=== PATIENT | female | born 1990 | race Caucasian/White ===

== ENCOUNTER → 2017-01-05 | Outpatient (CLI) | payer OTHER ==
[~2017-01-05] MED LIST: LEXA10TA PO; [UNRECOGNIZED DRUG - CODE]
== END ==
LOC: HPND 14:06
PROVIDERS: ATTEND Obstetrics & Gynecology
DX: O44.01 Complete placenta previa NOS or without hemorrhage, first trimester (principal); Z3A.13 13 weeks gestation of pregnancy
CPT/HCPCS: 76801

== ENCOUNTER → 2017-02-17 | Outpatient (CLI) | payer OTHER | LOC: HPND 12:58 | PROVIDERS: ATTEND Obstetrics & Gynecology | DX: O43.892 Other placental disorders, second trimester (principal); O44.02 Complete placenta previa NOS or without hemorrhage, second trimester; Z3A.18 18 weeks gestation of pregnancy | CPT/HCPCS: 76811; 76817 ==

== ENCOUNTER 2017-03-03 14:52 | Emergency (ER) | payer OTHER ==
--- NOTE | 2017-03-03 15:40 | PD ---
HPI Chief Complaint Vaginal bleeding Date Seen: March 03, 2017 Time Seen: 15:33 Travel History International Travel<30 Days: No Contact w/Intl Traveler<30Days: No Known Affected Area: No History of Present Illness HPI 27-year-old who is at 20 weeks and 6 days with a known complete placenta previa comes in today with vaginal bleeding. Patient has had intermittent vaginal bleeding since 8 weeks and was diagnosed with a placenta previa at 12 weeks and was told that it was unlikely that this previa would resolve prior to delivery. Patient bled intermittently 3-4 days per week until 16 weeks and then a decreased. Patient's been at pelvic rest and decreased activity and she passed us a quarter size blood clot earlier this morning with no further bleeding. Denies abdominal pain or contractions Para: 2 : 3 History Past Medical History Medical History: Denies Significant Hx Obstetric History Obstetric History section 2 Past Surgical History Surgical History: No Previous Surgery Family History Family History: Negative Social History Alcohol Use: No Tobacco Use: No Substance Abuse: No Review of Systems Except as stated in HPI: all other systems reviewed are Neg Physical Exam Narrative GENERAL: Well-nourished, well-developed patient. SKIN: Warm and dry. HEAD: Normocephalic and atraumatic. EYES: No scleral icterus. No injection or drainage. ENT: No nasal drainage noted. Mucous membranes pink. Airway patent. NECK: Supple, trachea midline. No JVD. CARDIOVASCULAR: Regular rate and rhythm without murmurs, gallops, or rubs. RESPIRATORY: Breath sounds equal bilaterally. No accessory muscle use. BREASTS: Bilateral exam showed no masses , no retractions, no nipple discharge. ABDOMEN/GI: Abdomen soft, non-tender, bowel sounds present, no rebound, no guarding Gravid to [-] weeks size Fundal Height: [-21] GENITOURINARY: External Genitalia: intact and normal in appearance BUS glands: [-Normal] Cervix: [-Closed visually] some brown discharge noted intravaginally, no bleeding noted Dilatation: [-] Effacement: [-] Station: [-] Presentation: [-] Membranes: [intact or ruptured] Uterine Contractions: [-] Absent FHT's: Category: [-1] Baseline: [-130] Reactive: [-Moderate] Variability: Moderate Decels: Absent EXTREMITIES: No cyanosis or edema. BACK: Nontender without obvious deformity. No CVA tenderness. NEUROLOGICAL: Awake and alert. Motor and sensory grossly within normal limits. Five out of 5 muscle strength in all muscle groups. Normal speech. Data Data Vital Signs Reviewed: Yes MDM Plan 27-year-old who is at 20 weeks 6 days with complete placenta previa, minimal bleeding, no signs of active vaginal bleeding. Discharge home with follow up tomorrow for sonogram as scheduled Diagnosis Diagnosis: Primary Impression: Complete placenta previa with hemorrhage, second trimester Additional Impressions: IUFD at less than 20 weeks of gestation 20 weeks gestation of Previous section Previous section complicating , antepartum condition or complication Disposition: DISCHARGE HOME Abigail Esposito MD March 03, 2017 15:40
== END 2017-03-03 15:54 | disposition home or self-care (01) ==
LOC: HOBED 14:52
DX: O44.12 Complete placenta previa with hemorrhage, second trimester (principal); Z3A.20 20 weeks gestation of pregnancy; O34.219 Maternal care for unspecified type scar from previous cesarean delivery
CPT/HCPCS: 99283

== ENCOUNTER → 2017-03-04 | Outpatient (CLI) | payer OTHER | LOC: HPND 08:19 | PROVIDERS: ATTEND Obstetrics & Gynecology | DX: O44.02 Complete placenta previa NOS or without hemorrhage, second trimester (principal); O36.8920 Maternal care for other specified fetal problems, second trimester, not applicable or unspecified | CPT/HCPCS: 76815; 76817 ==

== ENCOUNTER → 2017-03-17 | Outpatient (CLI) | payer OTHER | LOC: HPND 08:34 | PROVIDERS: ATTEND Obstetrics & Gynecology | DX: O44.10 Complete placenta previa with hemorrhage, unspecified trimester (principal); O34.219 Maternal care for unspecified type scar from previous cesarean delivery; O44.01 Complete placenta previa NOS or without hemorrhage, first trimester; Z3A.00 Weeks of gestation of pregnancy not specified | CPT/HCPCS: 76816; 76817 ==

== ENCOUNTER 2017-03-29 19:03 | Observation (INO) | payer OTHER ==
[~2017-03-29] VITALS: Ht 162.6 cm; Wt 90.7 kg
[2017-03-29 19:35] LABS: AUTOMATED NEUTROPHIL # 9.5 TH/MM3 (1.8-7.7); BASOPHIL % 0.1 % (0.0-2.0); EOSINOPHIL # 0.1 TH/MM3 (0-0.4); EOSINOPHIL % 0.7 % (0.0-4.0); HEMATOCRIT 32.5 % (35.0-46.0); HEMO FLAGS DIFF FINAL; LYMPH % 16.6 % (9.0-44.0); MEAN CELL VOLUME 87.9 FL (80.0-100.0); MEAN CORPUSCULAR HEMOGLOBIN 29.1 PG (27.0-34.0); MEAN CORPUSCULAR HGB CONC 33.1 % (32.0-36.0); MONO % 4.6 % (0.0-8.0); PLATELET COUNT 290 TH/MM3 (150-450); RED CELL DISTRIBUTION WIDTH 14.3 % (11.6-17.2); WHITE BLOOD COUNT 12.2 TH/MM3 (4.0-11.0)
[2017-03-29 19:48] LABS: ANION GAP 13 MEQ/L (5-15); AST (GOT) 11 U/L (15-37); BICARBONATE 20.9 MEQ/L (21.0-32.0); BLOOD UREA NITROGEN 9 MG/DL (7-18); CHLORIDE 100 MEQ/L (98-107); GLOMERULAR FILTRATION RATE 99 ML/MIN (>89); POTASSIUM 3.4 MEQ/L (3.5-5.1); SODIUM (NA) 134 MEQ/L (136-145)
[2017-03-29 19:50] LABS: ALT (GPT) 15 U/L (10-53)
--- NOTE | 2017-03-29 19:50 | PD ---
HPI Chief Complaint Vaginal bleeding Date Seen: Mar 29, 2017 Time Seen: 19:37 Travel History International Travel<30 Days: No Contact w/Intl Traveler<30Days: No Known Affected Area: No History of Present Illness HPI 27-year-old who is at 24 weeks and 4 days based on an LEEANNE of June comes into the hospital due to heavy bright red vaginal bleeding that occurred just before her arrival. Patient has a history of a placenta previa which has bled intermittently throughout this with a large subchorionic hematoma diagnosed at 13 weeks. Patient been seen by perinatology for the placenta previa but has not had the extent of bleeding that occurred earlier today. Patient denies abdominal pain, contractions. Good movement is noted. Last ultrasound was partly 10 days ago which noted the previa without visualization of a placenta accreta at this time. Patient states that she was eating dinner with friends and when she stood up a large amount of bleeding was noted that soaked through her underwear and pants and she came in immediately to the hospital brought in by her spouse. Para: 2 : 3 History Past Medical History Medical History: Denies Significant Hx Obstetric History Obstetric History section 2 Past Surgical History Narrative Surgical section 2 Family History Family History: Negative Social History Alcohol Use: No Tobacco Use: No Substance Abuse: No Review of Systems Except as stated in HPI: all other systems reviewed are Neg Physical Exam Narrative GENERAL: Well-nourished, well-developed patient. Patient has dried blood throughout both lower legs, soaking through her underwear, partially soaked her slacks. SKIN: Warm and dry. HEAD: Normocephalic and atraumatic. EYES: No scleral icterus. No injection or drainage. ENT: No nasal drainage noted. Mucous membranes pink. Airway patent. NECK: Supple, trachea midline. No JVD. CARDIOVASCULAR: Regular rate and rhythm without murmurs, gallops, or rubs. RESPIRATORY: Breath sounds equal bilaterally. No accessory muscle use. BREASTS: Bilateral exam showed no masses , no retractions, no nipple discharge. ABDOMEN/GI: Abdomen soft, non-tender, bowel sounds present, no rebound, no guarding Gravid to [-24] weeks size Fundal Height: [-] GENITOURINARY: External Genitalia: intact and normal in appearance BUS glands: [-Normal] Cervix: [-] Large blood clot approximately 100 cc worth intravaginally was removed with a speculum. There is no active bleeding at this time and cervix is closed Dilatation: [-Closed visually] Effacement: [-] Station: [-] Presentation: [-] Membranes: [intact] Uterine Contractions: [-Absent] FHT's: Category: [1-] Baseline: [140-] Reactive: [-] Variability: [-] Decels: [-Absent] Ultrasound was performed to identify heart tones, heart tones were at 142. Cephalic presentation was noted of fetuses approximately 24 weeks size. Placenta previa is noted with multiple placenta lakes and sinuses noted, a 3 x 4 cm hematoma is noted at the lower edge. EXTREMITIES: No cyanosis or edema. BACK: Nontender without obvious deformity. No CVA tenderness. NEUROLOGICAL: Awake and alert. Motor and sensory grossly within normal limits. Five out of 5 muscle strength in all muscle groups. Normal speech. Data Data Orders Complete Blood Count With Diff (03/29/17 19:12) Type And Screen (03/29/17 19:12) Act Partial Throm Time (Ptt) (03/29/17 19:12) Prothrombin Time / Inr (Pt) (03/29/17 19:12) Fibrinogen (03/29/17 19:12) Comprehensive Metabolic Panel (03/29/17 19:12) Ob (2e) Additional Admit Info (03/29/17 19:15) Labs Laboratory Tests Test 03/29/17 19:10 White Blood Count 12.2 Red Blood Count 3.70 Hemoglobin 10.8 Hematocrit 32.5 Mean Corpuscular Volume 87.9 Mean Corpuscular Hemoglobin 29.1 Mean Corpuscular Hemoglobin 33.1 Concent Red Cell Distribution Width 14.3 Platelet Count 290 Mean Platelet Volume 8.6 Neutrophils (%) (Auto) 78.0 Lymphocytes (%) (Auto) 16.6 Monocytes (%) (Auto) 4.6 Eosinophils (%) (Auto) 0.7 Basophils (%) (Auto) 0.1 Neutrophils # (Auto) 9.5 Lymphocytes # (Auto) 2.0 Monocytes # (Auto) 0.6 Eosinophils # (Auto) 0.1 Basophils # (Auto) 0.0 CBC Comment DIFF FINAL Differential Comment MDM Plan 27 years old at 24 weeks and 4 days gestation with a known complete placenta previa, sentinel vaginal bleeding event. Patient is stable hemodynamically at this time with no further active bleeding Will admit for observation of vaginal bleeding and initiation of steroids Diagnosis Diagnosis: Primary Impression: Complete placenta previa with hemorrhage, second trimester Additional Impressions: 24 weeks gestation of Previous section Abigail Esposito MD Mar 29, 2017 19:50
[2017-03-29 19:51] LABS: ALKALINE PHOSPHATASE 82 U/L (45-117); TOTAL BILIRUBIN ADULT 0.2 MG/DL (0.2-1.0)
[2017-03-29 19:52] LABS: APTT (PATIENT) 33.6 SEC (24.3-30.1); INTERNATIONAL NORMALIZED RATIO 0.9 RATIO; PROTHROMBIN TIME - PATIENT 10.3 SEC (9.8-11.6)
[2017-03-29] MEDS ORDERED: ONDANSETRON HCL 4 MG/2 ML VIAL IV PRN (20:00)
[2017-03-29] MEDS ORDERED: SODIUM CHLORIDE 0.9% FLUSH 10 ML FLUSH IV FLUSH PRN (20:00)
[2017-03-29] MEDS ORDERED: ZOLPIDEM TARTRATE 5 MG TAB PO PRN (20:00)
[2017-03-29 20:24] VITALS: BP 130/63; PULSE 84
[2017-03-29 20:30] VITALS: RESP 18
[2017-03-29] MEDS ORDERED: LACTATED RINGER'S 1000 ML INJ 1,000 ML IV ONE (20:31)
[2017-03-29] MEDS: BETAMETHASONE SOD PHOS/ACETATE SUSP 30 MG/5 ML VIAL IM SCH (20:49)
[2017-03-29] MEDS: SODIUM CHLORIDE 0.9% FLUSH 10 ML FLUSH IV FLUSH SCH ×2 (21:00→21:37)
[2017-03-29] MEDS: FERROUS SULFATE 325 MG (65 MG ELEMENTAL IRON) TAB PO SCH (21:34)
[2017-03-29] MEDS: ESCITALOPRAM OXALATE 10 MG TAB PO SCH (21:34)
[2017-03-29 22:58] VITALS: RESP 18; TEMP 98.1
[2017-03-29 23:00] VITALS: BP 129/61; PULSE 79
[2017-03-30] VITALS (9 sets, daily range): BP systolic 128–136; BP diastolic 58–70; PULSE 87–93; RESP 18–20; TEMP 98.3–98.8
[2017-03-30] MEDS ORDERED: [UNRECOGNIZED DRUG - CODE] (04:47)
[2017-03-30] MEDS ORDERED: LEXA10TA PO (04:48)
[2017-03-30 05:57] LABS: HEMATOCRIT 27.8 % (35.0-46.0); MEAN CELL VOLUME 86.4 FL (80.0-100.0); MEAN CORPUSCULAR HEMOGLOBIN 29.3 PG (27.0-34.0); MEAN CORPUSCULAR HGB CONC 33.9 % (32.0-36.0); PLATELET COUNT 257 TH/MM3 (150-450); RED BLOOD COUNT 3.22 MIL/MM3 (4.00-5.30); RED CELL DISTRIBUTION WIDTH 14.6 % (11.6-17.2); REVIEW FLAG FINAL; WHITE BLOOD COUNT 14.1 TH/MM3 (4.0-11.0)
[2017-03-30] MEDS ORDERED: ESCITALOPRAM OXALATE 10 MG TAB PO SCH (09:00)
[2017-03-30] MEDS: FERROUS SULFATE 325 MG (65 MG ELEMENTAL IRON) TAB PO SCH ×2 (09:03→20:30)
[2017-03-30] MEDS: MULTIVIT/MIN/PREN/FOL AC/IRON PRENATAL TAB PO SCH (09:03)
[2017-03-30] MEDS: ESCITALOPRAM OXALATE 10 MG TAB PO SCH (20:30)
[2017-03-30] MEDS: BETAMETHASONE SOD PHOS/ACETATE SUSP 30 MG/5 ML VIAL IM SCH (20:31)
[2017-03-30] MEDS: SODIUM CHLORIDE 0.9% FLUSH 10 ML FLUSH IV FLUSH SCH (20:34)
--- NOTE | 2017-03-30 23:09 | HHI.HP ---
HPI Chief Complaint vaginal bleeding Date Seen: Mar 30, 2017 Time Seen: 17:30 Travel History International Travel<30 Days: No Contact w/Intl Traveler<30Days: No Known Affected Area: No History of Present Illness HPI 27 yo presented on 03/29 with heavy vaginal bleeding after having dinner. states bleeding has decreased since then. denies dizziness/ lightheadedness. no SOP/CP +FM, no contractions, LOF. complicated by complete previa, with minor bleeding episodes prior to this. Para: 2 : 3 History Past Medical History Narrative Medical depression Obstetric History Obstetric History X 2 Past Surgical History Narrative Surgical X 2 Family History Family History: Negative Social History Alcohol Use: No Tobacco Use: No Substance Abuse: No Allergies-Medications (Allergen,Severity, Reaction): Coded Allergies: No Known Allergies (Unverified , 03/30/17) Home Meds Reported Medications Escitalopram (Lexapro)10 Mg Tab10 Mg PO DAILY #30 TAB Ref 0 03/30/17 Without A W/ Fe Fumar (Pnv-[place] 28-0.6-0.4-340 mg)1 Cap Cap Daily 03/30/17 Review of Systems Except as stated in HPI: all other systems reviewed are Neg Physical Exam Vital Signs Date Time Temp Pulse Resp B/P Pulse Ox O2 Delivery O2 Flow Rate FiO2 03/30/17 22:41 98.6 18 03/30/17 22:40 92 134/58 03/30/17 19:09 18 03/30/17 19:05 87 134/70 03/30/17 16:14 98.8 90 20 136/60 03/30/17 12:03 20 03/30/17 12:01 91 132/67 03/30/17 07:21 20 03/30/17 07:21 98.3 03/30/17 07:16 93 128/68 Narrative GENERAL: Well-nourished, well-developed patient. SKIN: Warm and dry. HEAD: Normocephalic and atraumatic. EYES: No scleral icterus. No injection or drainage. ENT: No nasal drainage noted. Mucous membranes pink. Airway patent. NECK: Supple, trachea midline. No JVD. CARDIOVASCULAR: Regular rate and rhythm without murmurs, gallops, or rubs. RESPIRATORY: Breath sounds equal bilaterally. No accessory muscle use. BREASTS: Bilateral exam showed no masses , no retractions, no nipple discharge. ABDOMEN/GI: Abdomen soft, non-tender, bowel sounds present, no rebound, no guarding Gravid to 24 weeks size Fundal Height: [-] FHT's: Category: [-] 1 Baseline: [-] 140s Reactive: [-] Variability: [-] mod Decels: [-] none EXTREMITIES: No cyanosis or edema. BACK: Nontender without obvious deformity. No CVA tenderness. NEUROLOGICAL: Awake and alert. Motor and sensory grossly within normal limits. Five out of 5 muscle strength in all muscle groups. Normal speech. Data Data Vital Signs Reviewed: Yes Orders Diet Regular Basic (03/30/17 Breakfast) Heart (03/30/17 18:13) Physician Name Changes (03/30/17 ) Labs Laboratory Tests Test 03/30/17 05:20 White Blood Count 14.1 Red Blood Count 3.22 Hemoglobin 9.4 Hematocrit 27.8 Mean Corpuscular Volume 86.4 Mean Corpuscular Hemoglobin 29.3 Mean Corpuscular Hemoglobin 33.9 Concent Red Cell Distribution Width 14.6 Platelet Count 257 Mean Platelet Volume 8.5 Assessment/Plan Problem List: (1) Complete placenta previa with hemorrhage, second trimester Plan: now stable cont bedrest (2) 24 weeks gestation of Plan: s/p first dose of steroids Marcela Nicole MD Mar 30, 2017 23:09
[2017-03-31 04:12] VITALS: BP 130/61; PULSE 87
[2017-03-31 04:15] VITALS: RESP 18; TEMP 98.6
[2017-03-31] MEDS: MULTIVIT/MIN/PREN/FOL AC/IRON PRENATAL TAB PO SCH (09:11)
[2017-03-31] MEDS: SODIUM CHLORIDE 0.9% FLUSH 10 ML FLUSH IV FLUSH SCH (09:12)
[2017-03-31] MEDS: FERROUS SULFATE 325 MG (65 MG ELEMENTAL IRON) TAB PO SCH (09:12)
[2017-03-31 09:15] VITALS: BP 132/59; PULSE 94
[2017-03-31 09:23] VITALS: RESP 18; TEMP 97.9
[2017-03-31 15:31] VITALS: BP 127/56; PULSE 89
[2017-03-31 15:51] VITALS: RESP 18
--- NOTE | 2017-03-31 18:09 | HHI.DCPOC ---
Discharge Care Plan Diagnosis: (1) Complete placenta previa with hemorrhage, second trimester (2) 24 weeks gestation of Your Health Problems Are: Vaginal bleeding Report Symptoms to Your Doctor -Temperature above 100.5 degrees -Redness, of incision or excessive or foul smelling drainage -Unusual pain or calf pain -Increased vaginal bleeding -Painful or difficulty urinating -Feelings of extreme sadness or anxiety after 2 weeks Goals to Promote Your Health * To prevent worsening of your condition and complications * To maintain your health at the optimal level Directions to Meet Your Goals Take your medications as prescribed Follow your dietary instruction Follow activity as directed Ensure plenty of rest for recovery Drink fluids for hydration Keep your appointments as scheduled Take your immunizations and boosters as scheduled If your symptoms worsen call your PCP, if no PCP go to Urgent Care Center or Emergency Room Smoking is Dangerous to Your Health. Avoid second hand smoke Call the 24-hour crisis hotline for domestic abuse at Marcela Nicole MD Mar 31, 2017 18:09
--- NOTE | 2017-03-31 18:15 | HHI.DS ---
Admission Date Mar 29, 2017 at 20:00 Discharge Date: Mar 31, 2017 Admitting Diagnosis Diagnosis: (1) 24 weeks gestation of Diagnosis: Secondary (2) Complete placenta previa with hemorrhage, second trimester Diagnosis: Principal Brief History 27 yo presented on 03/29 with heavy vaginal bleeding after having dinner. states bleeding has decreased since then. denies dizziness/ lightheadedness. no SOP/CP +FM, no contractions, LOF. complicated by complete previa, with minor bleeding episodes prior to this. Hospital Course pt was admitted with a heavy bleeding episode at 24+ weeks gestation. she was given steroids. her bleeding improved. FHTs were WNL. on 03/31 her peripads were dry and she was seeing occasional brown staining with wiping. she was discharged to home on bedrest, undelivered. Pt Condition on Discharge: Stable Discharge Disposition: Discharge Home Discharge Instructions Diet Instructions: As Tolerated, No Restrictions Activities You Can Perform: Shower/Bath Activities to Avoid: Sexual Activity Additional Activity Instruc.: continue modified bedrest Marcela Nicole MD Mar 31, 2017 18:15
== END 2017-03-31 19:59 | disposition home or self-care (01) ==
LOC: HOBED 19:03 → H2EB 19:19 → UNDOADMIN 19:19 → H2EB 19:32 → H2EA 19:32
PROVIDERS: ADMIT Obstetrics & Gynecology; ATTEND Obstetrics & Gynecology
DX: O44.12 Complete placenta previa with hemorrhage, second trimester (principal); Z3A.24 24 weeks gestation of pregnancy
CPT/HCPCS: 76815; 80053; 85025; 85027; 85384; 85610; 85730; 86850; 86900; 86901; 96372; 99285; G0378; J0702; J7120

== ENCOUNTER → 2017-04-06 | Outpatient (CLI) | payer OTHER ==
--- NOTE | 2017-04-06 09:10 | RADRPT ---
EXAM DATE/TIME: 04/06/2017 07:56 [facility] COMPARISON: No previous studies available for comparison. INDICATIONS : Placenta previa. MEDICAL HISTORY : None. SURGICAL HISTORY : section. IUD surgical removal. ENCOUNTER: Subsequent ACUITY: 2 weeks PAIN SCORE: 0/10 LOCATION: pelvis TECHNIQUE: Multiplanar, multisequence magnetic resonance imaging of the pelvis was performed. FINDINGS: The technique used was chosen to maximize visualization of the uterus and placenta. The exam is not t ailored to the fetus. There is a complete placenta previa. The placenta extends over the entire inter nal cervical os. It extends 5 cm from the os posteriorly and at least 20 cm anteriorly. The fetus is in vertex position. CONCLUSION: Complete placenta previa. Sage Grey MD on April 06, 2017 at 8:56 Board Certified Radiologist. This report was verified electronically.
== END ==
LOC: HRAD 07:07
PROVIDERS: ATTEND Obstetrics & Gynecology
DX: O44.02 Complete placenta previa NOS or without hemorrhage, second trimester (principal)
CPT/HCPCS: 72195

== ENCOUNTER → 2017-04-22 | Outpatient (CLI) | payer OTHER | LOC: HPND 08:25 | PROVIDERS: ATTEND Obstetrics & Gynecology | DX: O34.212 Maternal care for vertical scar from previous cesarean delivery (principal); O44.12 Complete placenta previa with hemorrhage, second trimester; Z3A.27 27 weeks gestation of pregnancy | CPT/HCPCS: 76816 ==

== ENCOUNTER 2017-05-11 19:02 | Inpatient (IN) | payer OTHER ==
[~2017-05-11] VITALS: Ht 162.6 cm; Wt 101.6 kg
[~2017-05-11 19:02] MED LIST changes: +ESCITALOPRAM OXALATE 10 MG TAB PO SCH
[2017-05-11] MEDS ORDERED: ONDANSETRON ODT 4 MG TAB PO PRN (20:15)
[2017-05-11] MEDS ORDERED: SODIUM CHLORIDE 0.9% FLUSH 10 ML FLUSH IV FLUSH PRN (20:15)
[2017-05-11] MEDS ORDERED: ALUMINUM/MAGNESIUM/SIMETH 30 ML CUP PO PRN (20:15)
[2017-05-11] MEDS ORDERED: ACETAMINOPHEN 325 MG TAB PO PRN (20:15)
[2017-05-11] MEDS ORDERED: ONDANSETRON HCL 4 MG/2 ML VIAL IV PRN (20:15)
[2017-05-11] MEDS ORDERED: ZOLPIDEM TARTRATE 5 MG TAB PO PRN (20:15)
--- NOTE | 2017-05-11 20:15 | HHI.HP ---
HPI Chief Complaint Patient with known placenta previa and vaginal bleeding today Date Seen: May 11, 2017 Travel History International Travel<30 Days: No Contact w/Intl Traveler<30Days: No Known Affected Area: No History of Present Illness HPI Asus 27-year-old white female previous [address] Nicole who has a known complete placenta previa, she is noticed some degree of vaginal bleeding the entire and is been hospitalized for the sentinel bleed about 6 weeks ago, today she passed a blood clot size of golf ball approximately and then she described what she called red bleeding after that little less than a period, no pain associated, no leakage of fluid, baby is active. heart rate tracing is reactive she is not rafal Para: 2 : 3 History Obstetric History Obstetric History 2 previous C-sections and current with placenta previa Past Surgical History Narrative Surgical 2 Social History Alcohol Use: No Tobacco Use: No Substance Abuse: No Allergies-Medications (Allergen,Severity, Reaction): Coded Allergies: No Known Allergies (Unverified , 03/30/17) Home Meds Reported Medications Escitalopram (Lexapro)10 Mg Tab10 Mg PO DAILY #30 TAB Ref 0 03/30/17 Without A W/ Fe Fumar (Pnv-[place] 28-0.6-0.4-340 mg)1 Cap Cap Daily 03/30/17 Review of Systems General / Constitutional: No: Fever, Weight Gain, Chills, Other Eyes: No: Diploplia, Blurred Vision, Visual changes, Pain, Photophobia HENT: No: Headaches, Vertigo, Lightheadedness Cardiovascular: No: Irregular Rhythm, Chest Pain or Discomfort, Palpitations, Tachycardia, Syncope, Varicosities, Edema, Cyanosis Respiratory: No: Cough, Short of Breath, Other Gastrointestinal: No: Nausea, Vomiting, Diarrhea Genitourinary: Vaginal Bleeding, No: Decreased Urinary Output, Oliguria Musculoskeletal: No: Limited ROM, Weakness, Cramping, Edema, Pain Skin: No Rash, No Itching, No Dryness, No Lumps, No Change in Pigmentation, No Change in Nails, No Alopecia, No Lesions Neurologic: No: Weakness, Dizziness, Syncope, Focal Abnormalities, Coordination Problem, Headache, Slurred Speech, Seizures Psychiatric: No: Depression, Suicidal Ideations, Homicidal Ideation Endocrine: No: Heat Intolerance, Cold Intolerance, Polydipsia, Polyuria, Other Physical Exam Narrative GENERAL: Well-nourished, well-developed patient. SKIN: Warm and dry. HEAD: Normocephalic and atraumatic. EYES: No scleral icterus. No injection or drainage. ENT: No nasal drainage noted. Mucous membranes pink. Airway patent. NECK: Supple, trachea midline. No JVD. CARDIOVASCULAR: Regular rate and rhythm without murmurs, gallops, or rubs. RESPIRATORY: Breath sounds equal bilaterally. No accessory muscle use. BREASTS: Bilateral exam showed no masses , no retractions, no nipple discharge. ABDOMEN/GI: Abdomen soft, non-tender, bowel sounds present, no rebound, no guarding Gravid to [30-] weeks size Fundal Height: [30-] GENITOURINARY: External Genitalia: intact and normal in appearance Speculum exam done and old dark blood in the vagina clotted is a quarter size old dark clot near the cervix and just small scattered little tiny brown lead spots in the vagina Cervix: [Closed-] Dilatation: [-0] Effacement: [-Thick] Station: [-3] Presentation: [vtx-] Membranes: [intact ] Uterine Contractions: [-none] FHT's: Category: [1-] Baseline: [-133] Reactive: [-yes] Variability: [mod-] Decels: [-none] EXTREMITIES: No cyanosis or edema. BACK: Nontender without obvious deformity. No CVA tenderness. NEUROLOGICAL: Awake and alert. Motor and sensory grossly within normal limits. Five out of 5 muscle strength in all muscle groups. Normal speech. Assessment/Plan Assessment and Plan Patient is 27-year-old white female previous 2 with known placenta previa at 30 weeks 5 days, patient noticed what she describes as a problem size blood clot per vagina today and then since then the red bleeding less than a period but noticed red bleeding which prior to that is always been brown bleeding, baby is active she has no pain she has no leakage of fluid and no contractions. On exam is a dark blood clot at the cervix that's about quarter size in this smaller fragments will dark blood in the vagina. No active bleeding noted no red blood seen. Ultrasound confirms a complete previa over the cervical os, baby is vertex presentation Impressions placenta previa with vaginal bleeding the third trimester Plan is admission to the hospital for in house care, will gain IV access, will type and cross for blood. Stalin Hidalgo II, MD May 11, 2017 20:15
[2017-05-11] MEDS: SODIUM CHLORIDE 0.9% FLUSH 10 ML FLUSH IV FLUSH SCH (20:29)
[2017-05-11] MEDS: FERROUS SULFATE 325 MG (65 MG ELEMENTAL IRON) TAB PO SCH (21:20)
[2017-05-11] MEDS: ESCITALOPRAM OXALATE 10 MG TAB PO SCH (22:01)
[2017-05-11 22:07] LABS: AUTOMATED NEUTROPHIL # 7.9 TH/MM3 (1.8-7.7); BASOPHIL % 0.1 % (0.0-2.0); EOSINOPHIL # 0.1 TH/MM3 (0-0.4); EOSINOPHIL % 0.7 % (0.0-4.0); HEMATOCRIT 30.1 % (35.0-46.0); HEMO FLAGS DIFF FINAL; LYMPH % 18.1 % (9.0-44.0); LYMPHOCYTE # 1.9 TH/MM3 (1.0-4.8); MEAN CELL VOLUME 89.2 FL (80.0-100.0); MEAN CORPUSCULAR HEMOGLOBIN 29.8 PG (27.0-34.0); MEAN CORPUSCULAR HGB CONC 33.4 % (32.0-36.0); MONO % 5.9 % (0.0-8.0); NEUT % 75.2 % (16.0-70.0); PLATELET COUNT 248 TH/MM3 (150-450); RED BLOOD COUNT 3.37 MIL/MM3 (4.00-5.30); RED CELL DISTRIBUTION WIDTH 14.7 % (11.6-17.2); WHITE BLOOD COUNT 10.5 TH/MM3 (4.0-11.0)
[2017-05-11 22:25] LABS: BACTERIA, URINE FEW /hpf; BLOOD, URINE LARGE (NEG); COMMENT (UR) CULT NOT INDICATED; CULTURE IF INDICATED CULT NOT INDICATED; GLUCOSE,URINE NEG (NEG); KETONE, URINE NEG (NEG); MUCUS URINE FEW /lpf (OCC); NITRITE,URINE NEG (NEG); SQUAMOUS EPITHELIAL CELL URINE 1 /hpf (0-5); URINE COLOR YELLOW (YELLW/STRAW)
[2017-05-11 22:28] LABS: INTERNATIONAL NORMALIZED RATIO 0.9 RATIO
[2017-05-11 22:30] LABS: BICARBONATE 24.6 MEQ/L (21.0-32.0); POTASSIUM 3.6 MEQ/L (3.5-5.1)
[2017-05-11 23:56] VITALS: RESP 16; TEMP 98.2
[2017-05-11 23:57] VITALS: BP 137/70; PULSE 90
[2017-05-12] VITALS (9 sets, daily range): BP systolic 118–130; BP diastolic 64–74; PULSE 18–90; RESP 17–18; TEMP 98–98.3
[2017-05-12] MEDS: MULTIVIT/MIN/PREN/FOL AC/IRON PRENATAL TAB PO SCH (09:17)
[2017-05-12] MEDS: DOCUSATE SODIUM 100 MG CAP PO SCH (09:17)
[2017-05-12] MEDS: FERROUS SULFATE 325 MG (65 MG ELEMENTAL IRON) TAB PO SCH ×2 (09:17→19:50)
[2017-05-12] MEDS: SODIUM CHLORIDE 0.9% FLUSH 10 ML FLUSH IV FLUSH SCH ×2 (09:17→19:50)
[2017-05-12] MEDS: ESCITALOPRAM OXALATE 10 MG TAB PO SCH (19:50)
--- NOTE | 2017-05-12 21:48 | PD.OB.ANTE ---
Subjective Interval History pt c/o bright red bleeding overnight and passing a plum sized clot. denies contractions or LOF, +FM. pt states referral to [facility] had not been received. Objective Vital Signs Vital Signs Date Time Temp Pulse Resp B/P Pulse Ox O2 Delivery O2 Flow Rate FiO2 05/12/17 20:00 98.0 18 05/12/17 20:00 84 118/64 05/12/17 18:23 98.3 05/12/17 18:23 18 05/12/17 18:23 80 124/69 05/12/17 14:00 98.3 18 05/12/17 12:00 18 05/12/17 11:15 90 130/65 05/12/17 08:17 17 05/12/17 08:07 83 122/74 05/12/17 08:00 98.0 05/12/17 08:00 17 05/12/17 07:24 85 129/73 05/11/17 23:57 90 137/70 05/11/17 23:56 98.2 16 Physical Exam GENERAL: Well-nourished, well-developed patient. CARDIOVASCULAR: Regular rate and rhythm without murmurs, gallops, or rubs. RESPIRATORY: Breath sounds equal bilaterally. No accessory muscle use. ABDOMEN/GI: Abdomen soft, non-tender. Fundus: [-] GENITOURINARY: scant brown blood on peripad FHT's: Category: [-] 1 Baseline: [-] Reactive: [-] Variability: [-] Decels: [-] none EXTREMITIES: No cyanosis or edema, non-tender, without signs of DVT. Assessment and Plan Problem List: (1) Previous section complicating , antepartum condition or complication Status: Acute Assessment & Plan: pt aware of concern for accreta given hx of two prior c- sections will consult with MFM about further mgmt options (2) Placenta previa antepartum in third trimester Status: Acute Assessment & Plan: bleeding seems to have decreased overnight will repeat u/s in am with MFM consult cont bedrest Assessment and Plan Patient is 27-year-old white female previous 2 with known placenta previa at 30 weeks 5 days, patient noticed what she describes as a problem size blood clot per vagina today and then since then the red bleeding less than a period but noticed red bleeding which prior to that is always been brown bleeding, baby is active she has no pain she has no leakage of fluid and no contractions. On exam is a dark blood clot at the cervix that's about quarter size in this smaller fragments will dark blood in the vagina. No active bleeding noted no red blood seen. Ultrasound confirms a complete previa over the cervical os, baby is vertex presentation Impressions placenta previa with vaginal bleeding the third trimester Plan is admission to the hospital for in house care, will gain IV access, will type and cross for blood. Marcela Nicole MD May 12, 2017 21:48
[2017-05-13] VITALS (11 sets, daily range): BP systolic 119–132; BP diastolic 63–71; PULSE 83–90; RESP 16–18; TEMP 97.7–98.3
[2017-05-13] MEDS: DOCUSATE SODIUM 100 MG CAP PO SCH (09:21)
[2017-05-13] MEDS: MULTIVIT/MIN/PREN/FOL AC/IRON PRENATAL TAB PO SCH (09:21)
[2017-05-13] MEDS: FERROUS SULFATE 325 MG (65 MG ELEMENTAL IRON) TAB PO SCH ×2 (09:21→22:03)
[2017-05-13] MEDS: SODIUM CHLORIDE 0.9% FLUSH 10 ML FLUSH IV FLUSH SCH ×2 (09:21→20:39)
--- NOTE | 2017-05-13 09:25 | PD.CONS ---
History of Present Illness Service [facility] Consult Requested By Dr Nicole Reason for Consult Vaginal bleeding/ placenta previa. Primary Care Physician No Primary Care Physician Diagnoses: History of Present Illness 27 yo P2002 with LEEANNE 07/16/17 at 30w 1d. Known complete previa with suspicion of accreta. Presented to L&D 2 days ago complaining of bright red vaginal bleeding with clots x 2 days. No contractions, leaking, or other complaints. Active fetus as ususal. Here, has been observed and remains with on 7 off vaginal spotting, some bright red and some darker. states keo had bright red spotting this am. Previously had Betamethasone on 04/05-. MRI 04/06- possible accreta. Review of Systems Genitourinary: COMPLAINS OF: Abnormal vaginal bleeding, Dysmenorrhea, Dyspareunia, Sexual dysfunction, Urinary frequency, Urinary incontinence, Urgency, Hematuria, Dysuria, Nocturia, Vaginal discharge : As per HPI Past Family Social History Allergies: Coded Allergies: No Known Allergies (Unverified , 05/11/17) Past Medical History negative Past Surgical History x 2 Reported Medications see chart Active Ordered Medications see chart Family History non contributory Social History negative STD Hx:; negative PNC: as per HPI OB Hx: 2 term cesareans Physical Exam Vital Signs Vital Signs Date Time Temp Pulse Resp B/P Pulse Ox O2 Delivery O2 Flow Rate FiO2 05/13/17 07:54 98.1 05/13/17 07:54 16 05/13/17 07:50 88 132/71 05/13/17 03:43 86 130/69 05/13/17 03:42 97.7 18 05/13/17 00:00 83 18 05/13/17 00:00 98.0 129/68 05/12/17 20:00 98.0 18 05/12/17 20:00 84 118/64 05/12/17 18:23 98.3 05/12/17 18:23 18 05/12/17 18:23 80 124/69 05/12/17 14:00 98.3 18 05/12/17 12:00 18 05/12/17 11:15 90 130/65 Physical Exam GENERAL: This is a well-nourished, well-developed patient, in no apparent distress. SKIN: No rashes, ecchymoses or lesions. Cool and dry. HEAD: Atraumatic. Normocephalic. EYES: Pupils equal round and reactive. Extraocular motions intact. No scleral icterus. No injection or drainage. NECK: Trachea midline. CARDIOVASCULAR: Regular rate and rhythm without murmurs, gallops, or rubs per OB /RN RESPIRATORY: Clear to auscultation. Breath sounds equal bilaterally. No wheezes , rales, or rhonchi per OB/RN GASTROINTESTINAL: Abdomen soft, non-tender, nondistended. No guarding. MUSCULOSKELETAL: Extremities without clubbing, cyanosis, or edema. No calf tenderness. NEUROLOGICAL: Awake and alert. Motor and sensory grossly within normal limits. Normal speech. : Gravid uterus, non tender, no CTX. Deferred pelvic. Laboratory US: cephalic, efw 4lbs 13oz, ivan 13 cm, NL anatomy, incidental BPp 8/8. Conplete placenta previa with abundant lakes. Interphase between placenta and myometrium not present, unable to vis myometrium under the bladder area, mass effect bulging into bladder area seen. Abundant vascularity seen in the same area. FMS: Reactive FHR, no CTX. Result Diagram: 05/11/17201505/11/172015 Assessment and Plan Assessment and Plan IMP: 1. IUP 30w 1d 2. Complete previa. 3. 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 4. Still with spotting/ no evidence of PTL at this time. 5. S/P Betamethasone 04/05- 6. Reassuring surveillance. 7. BTG: A positive REC: 1. In patient management on bed rest 2. SCDs 3. Mag Sulfate for neuroprotection (4 g IVB, then 2g/hr IV x 24 hrs 4. Repeat Betamethasone- 12 mg IM with repeat dose in 24 hrs. 5. Total IVFs at 125 ml/hr 6. Fole cath/ Follow I&O closely/ Avoid fluid overload 7. Deliver if heavy vaginal bleeing, intractable PTL. Otherwise, should deliver at 34 weeks due to accreta. 8. Be prepared for accreta/ percreta at time of delivery: - Pre op anesthesia consult - Interventional Radiology on stand by for possible embolization - Urology in attendance for possible ureteral cath/ bladder repair - Assistance/ Pelvic surgeon in OR - Blood products in OR- PRBC, platelets, FFP foreseeing possible obstetrical hemorrhage - Consents for hysterectomy/ transfusion 7, If unable to have the above set up, consider transfer to another institution capable of handling this case (i.e. [facility]/ [facility]) 8. Case/ recommendations discussed with Dr Nicole. 40 minutes Edwin Diaz MD May 13, 2017 09:25 Edwin Diaz MD May 13, 2017 09:25
[2017-05-13] MEDS: BETAMETHASONE SOD PHOS/ACETATE SUSP 30 MG/5 ML VIAL IM SCH (14:49)
--- NOTE | 2017-05-13 21:47 | HHI.PR ---
Subjective Remarks Called by Labor staff tonight and reviewed care plan for patient. They report that the patient is not actively bleeding and not having labor. All seems quiet and patient will remain on bed rest. I have personally discussed the case with Dr Nicole and she has discussed the risk of transfusion and probable hysterectomy if there is an accreta or percreta. She has 2 children at home and understands the high risk nature of this medical diagnosis. She received steroids greater than 1 month ago and agree with Dr Condon recommendation of repeat dose of steroids tonight and repeat in 24 hours. I don' t think magnesium is indicated at this time because she is not in imminent time frame to deliver and our goal is to keep patient until 34 weeks about 4 weeks from now. If patient has heavier bleeding or labor ensue it may be possible to start magnesium for neuro protection. My current plan is to renew type and screen every 3 days and keep it current. I don't think in this case where the patient is quiet and not having any progression of severity that holding 4 units of blood would be our treatment plan. I discussed with blood bank tonight that they could cross match the first unit in 10 minutes with a current type and screen. Our goal is to keep this patient on bedrest and watch for signs of progression and hopefully maintain this until 34 weeks gestation. Objective Vital Signs Date Time Temp Pulse Resp B/P Pulse Ox O2 Delivery O2 Flow Rate FiO2 05/13/17 19:42 97.9 18 05/13/17 19:42 84 127/69 05/13/17 15:23 98.2 05/13/17 15:16 90 119/63 05/13/17 15:15 16 05/13/17 12:33 16 05/13/17 12:32 88 121/63 05/13/17 12:32 98.3 05/13/17 07:54 98.1 05/13/17 07:54 16 05/13/17 07:50 88 132/71 05/13/17 03:43 86 130/69 05/13/17 03:42 97.7 18 05/13/17 00:00 83 18 05/13/17 00:00 98.0 129/68 Result Diagram: 05/11/17201505/11/172015 Sage Segura MD May 13, 2017 21:47
[2017-05-13] MEDS ORDERED: BETAMETHASONE SOD PHOS/ACETATE SUSP 30 MG/5 ML VIAL IM SCH (22:00)
[2017-05-13] MEDS: ESCITALOPRAM OXALATE 10 MG TAB PO SCH (22:03)
--- NOTE | 2017-05-13 22:19 | PD.OB.ANTE ---
Subjective Diagnosis: (1) Previous section complicating , antepartum condition or complication (2) Placenta previa antepartum in third trimester Interval History pt doing well, had scant bright red bleeding with wiping overnight. rare cramping, +FM Objective Vital Signs Vital Signs Date Time Temp Pulse Resp B/P Pulse Ox O2 Delivery O2 Flow Rate FiO2 05/13/17 19:42 97.9 18 05/13/17 19:42 84 127/69 05/13/17 15:23 98.2 05/13/17 15:16 90 119/63 05/13/17 15:15 16 05/13/17 12:33 16 05/13/17 12:32 88 121/63 05/13/17 12:32 98.3 05/13/17 07:54 98.1 05/13/17 07:54 16 05/13/17 07:50 88 132/71 05/13/17 03:43 86 130/69 05/13/17 03:42 97.7 18 05/13/17 00:00 83 18 05/13/17 00:00 98.0 129/68 Physical Exam GENERAL: Well-nourished, well-developed patient. CARDIOVASCULAR: Regular rate and rhythm without murmurs, gallops, or rubs. RESPIRATORY: Breath sounds equal bilaterally. No accessory muscle use. ABDOMEN/GI: Abdomen soft, non-tender. Fundus: [-] GENITOURINARY: no brown or bright red blood on pad FHT's: Category: [-] 1 Baseline: [-] 140s Reactive: [-] yes Variability: [-] Decels: [-] none EXTREMITIES: No cyanosis or edema, non-tender, without signs of DVT. Assessment and Plan Problem List: (1) Previous section complicating , antepartum condition or complication Status: Acute Assessment & Plan: pt aware of concern for accreta given hx of two prior c- sections, pt understands possible need for hysterectomy. all questions answered with pt and her . will plan for delivery between 34-35 wks appreciate consult with MFM (2) Placenta previa antepartum in third trimester Status: Acute Assessment & Plan: bleeding minimal cont bedrest in hospital will repeat steroids now will given magnesium for neuroprotection if bleeding increases cont SCDs keep type and screen current. Marcela Nicole MD May 13, 2017 22:19
[2017-05-14] VITALS (15 sets, daily range): BP systolic 119–141; BP diastolic 58–70; PULSE 85–96; RESP 16; TEMP 98–98.5
[2017-05-14] MEDS: FERROUS SULFATE 325 MG (65 MG ELEMENTAL IRON) TAB PO SCH ×2 (09:00→21:11)
[2017-05-14] MEDS: MULTIVIT/MIN/PREN/FOL AC/IRON PRENATAL TAB PO SCH (09:00)
[2017-05-14] MEDS: SODIUM CHLORIDE 0.9% FLUSH 10 ML FLUSH IV FLUSH SCH ×2 (09:00→21:11)
[2017-05-14] MEDS: DOCUSATE SODIUM 100 MG CAP PO SCH (09:00)
[2017-05-14] MEDS: BETAMETHASONE SOD PHOS/ACETATE SUSP 30 MG/5 ML VIAL IM SCH (14:00)
--- NOTE | 2017-05-14 17:12 | PD.OB.ANTE ---
Subjective Diagnosis: (1) Previous section complicating , antepartum condition or complication (2) Placenta previa antepartum in third trimester Interval History pt with cramping this am, resolved with hydration. scant brown staining noted. Objective Vital Signs Vital Signs Date Time Temp Pulse Resp B/P Pulse Ox O2 Delivery O2 Flow Rate FiO2 05/14/17 16:34 92 132/69 05/14/17 12:00 16 05/14/17 11:00 16 05/14/17 10:00 16 05/14/17 09:00 16 05/14/17 08:04 96 141/70 05/14/17 08:00 16 05/14/17 07:00 98.0 16 05/14/17 03:00 94 119/69 05/13/17 19:42 97.9 18 05/13/17 19:42 84 127/69 Lab & Micro Results Test 05/14/17 05/14/17 04:45 14:00 Blood Type A POSITIVE A POSITIVE Antibody Screen NEGATIVE Crossmatch Leukocyte-Reduced Red Blood Cells Blood Bank Comment Physical Exam GENERAL: Well-nourished, well-developed patient. CARDIOVASCULAR: Regular rate and rhythm without murmurs, gallops, or rubs. RESPIRATORY: Breath sounds equal bilaterally. No accessory muscle use. ABDOMEN/GI: Abdomen soft, non-tender. Fundus: [-] GENITOURINARY: Uterine Contractions: [-] rare FHT's: Category: [-] 1 Baseline: [-] 140s Reactive: [-] reactive Variability: [-] Decels: [-] EXTREMITIES: No cyanosis or edema, non-tender, without signs of DVT. Assessment and Plan Problem List: (1) Previous section complicating , antepartum condition or complication Status: Acute Assessment & Plan: pt aware of concern for accreta given hx of two prior c- sections, pt understands possible need for hysterectomy. all questions answered with pt. will plan for delivery 34 wks, on 06/04 reviewed plan of care with nursing, nikki, anesthesia. case reviewed with IR and St[employer] Sprayer On[employer] consult call to urology will keep type and cross current for 4 units, per anesthesia request (2) Placenta previa antepartum in third trimester Status: Acute Assessment & Plan: bleeding minimal cont bedrest in hospital s/p repeat steroids will give magnesium for neuroprotection if bleeding or cramping increases cont SCDs, consult PT Marcela Nicole MD May 14, 2017 17:12
--- NOTE | 2017-05-14 18:55 | HHI.PR ---
Addendum to Inpatient Note Addendum Reason: Additional Documentation Additional Information Consult for Julia Vick Maternal Hx: 27 y/o, , female at 31 1/7 weeks gestation with diagnosis of known complete placenta previa with suspicion of accreta and possible percreta Mother admitted to L & D on 05/11/17 secondary to bright red vaginal bleeding at home with clots but no contractions at time of admission. Most recent Ultrasound on 05/11/17 confirms intrauterine . EDC of 07/16/17 Estimated weight is 2182 grams. Maternal risk factors/complications: Placenta previa, possible accreta/percreta , 2 previous c/sections. Maternal Medications: PNV with Iron, Lexapro, Colace, Ferrous Sulfate Betamethasone (04/05/17, 04/06/17 & 05/13/17) Social: Marital status: Resides locally Family Hx: Mother reports no genetic or inherited conditions. Reports other children (x2) are well. Substance Abuse: Denies Discussion: Nurse Practitioner met with mother and father regarding threatened delivery at 31 1/7 weeks gestation secondary to complete known placenta previa , suspect accreta and possible percreta. This consultation included generalized care of the baby in the NICU, common problems, complications and survival and/or disability potential if delivered at this time. The Nurse Practitioner provided information regarding the [employer] national statistics on overall survival at 31+ weeks and 2185.grams at 98% and intact survival without significant neurodevelopmental disability or visual disability at 97%. Parents were provided with informational regarding what to expect at the delivery. We reviewed the expectations with delivery of an infant under these circumstances including delivery room atmosphere, infant resuscitation and stabilization. Also included in this review is the admission process to the NICU, including possible procedures such as respiratory support and placement of IVs . Additionally, there was a discussion of the disease processes that may affect an infant of this gestation, including but not limited to respiratory distress, infection and nutritional concerns. Discussion detailed various forms of respiratory support for immature lungs. Discussion focused on CPAP and/or ventilator support as needed for an of this gestation. There was a review of nutritional support challenges including IV and gavage feeding. There was discussion regarding of possible feeding intolerances and intestinal complications, including necrotizing enterocolitis a potential cause of serious illness and . Breast feeding and early breast milk pumping was strongly encouraged. Explained that is at risk for hyperbilirubinemia and may require treatment with phototherapy. There is a possibility that that baby could need a blood transfusion, which would be addressed in greater detail should the need arise. As the baby matures , it was explained that eye exams would be obtained to evaluate the immature eye for retinopathy of prematurity (ROP). There was a review of the potential for intraventricular hemorrhage (IVH), sonogram testing and subsequent risk of neurodevelopmental delay. It was explained that there is an increased potential for neurodevelopmental delay secondary to prematurity itself, even if the infant does not have IVH or ROP. Support systems in place at [facility] were reviewed and included , Case Management and Ministry which the family may utilize. Expected discharge would likely occur closer to the due date if the infant has an uncomplicated hospitalization. Greater than 50% of the consultation time was spent with the patient. This case was also discussed at length with Occasional Babysitter, Dr. Evans. Katherine Serrano May 14, 2017 Nurse practitioner Date Katherine Serrano May 14, 2017 18:55
[2017-05-14] MEDS: ESCITALOPRAM OXALATE 10 MG TAB PO SCH (21:11)
[2017-05-15 06:14] VITALS: BP 129/65; PULSE 89
[2017-05-15 07:00] VITALS: RESP 18
[2017-05-15 07:54] VITALS: TEMP 98.3
[2017-05-15] MEDS: MULTIVIT/MIN/PREN/FOL AC/IRON PRENATAL TAB PO SCH (08:24)
[2017-05-15] MEDS: FERROUS SULFATE 325 MG (65 MG ELEMENTAL IRON) TAB PO SCH ×2 (08:24→22:15)
[2017-05-15] MEDS: DOCUSATE SODIUM 100 MG CAP PO SCH (08:24)
[2017-05-15] MEDS: SODIUM CHLORIDE 0.9% FLUSH 10 ML FLUSH IV FLUSH SCH ×2 (08:35→21:00)
[2017-05-15 10:00] VITALS: BP 122/66; PULSE 91
[2017-05-15 10:11] VITALS: RESP 18
--- NOTE | 2017-05-15 12:51 | PD.OB.ANTE ---
Subjective Diagnosis: (1) Previous section complicating , antepartum condition or complication (2) Placenta previa antepartum in third trimester Interval History no bleeding overnight. dime sized brown staining at noon today. no bright red bleeding. +FM, no contractions or LOF Objective Vital Signs Vital Signs Date Time Temp Pulse Resp B/P Pulse Ox O2 Delivery O2 Flow Rate FiO2 05/15/17 10:11 18 05/15/17 10:00 91 122/66 05/15/17 07:54 98.3 05/15/17 07:00 18 05/15/17 06:14 89 129/65 05/14/17 20:00 98.0 16 05/14/17 19:58 85 126/58 05/14/17 18:00 16 05/14/17 17:00 16 05/14/17 16:34 92 132/69 05/14/17 16:00 16 05/14/17 16:00 98.5 05/14/17 14:00 16 Lab & Micro Results Test 05/14/17 14:00 Blood Type A POSITIVE Crossmatch Leukocyte-Reduced Red Blood Cells Blood Bank Comment Physical Exam GENERAL: Well-nourished, well-developed patient. CARDIOVASCULAR: Regular rate and rhythm without murmurs, gallops, or rubs. RESPIRATORY: Breath sounds equal bilaterally. No accessory muscle use. ABDOMEN/GI: Abdomen soft, non-tender. Uterine Contractions: [-] quiet FHT's: Category: [-] 1 Baseline: [-] 140s Reactive: [-] yes Variability: [-] Decels: [-] EXTREMITIES: No cyanosis or edema, non-tender, without signs of DVT. Assessment and Plan Problem List: (1) Previous section complicating , antepartum condition or complication Status: Acute Assessment & Plan: pt aware of concern for accreta given hx of two prior c- sections, pt understands possible need for hysterectomy. all questions answered with pt. will plan for delivery 34 wks, on 06/04 reviewed plan of care with nursing, nikki, anesthesia. case reviewed with IR, lithograph press operator onco and urology will keep type and cross current for 4 units, per anesthesia request (2) Placenta previa antepartum in third trimester Status: Acute Assessment & Plan: cont bedrest in hospital s/p repeat steroids will give magnesium for neuroprotection if bleeding or cramping increases cont SCDs, consult PT Marcela Nicole MD May 15, 2017 12:51
[2017-05-15] MEDS ORDERED: BETAMETHASONE SOD PHOS/ACETATE SUSP 30 MG/5 ML VIAL IM ONE (14:00)
--- NOTE | 2017-05-15 20:48 | PD.CONS ---
HPI Service Urology Consult Requested By Reason for Consult Placenta accreta, Bladder involvement Primary Care Physician No Primary Care Physician Diagnosis: History of Present Illness 27yo female with history of and previous 2 currently with placenta accreta seen in consultation for concern for bladder involvement. Admitted for vaginal bleeding. Due to her condition, she is high risk for bladder involvement and injury during delivery via . Planned to be June 04, however potential emergent is possible. Patient report no dysuria. Review of Systems ROS Limitations: Clinical Condition Constitutional: DENIES: Fever Eyes: DENIES: Blurred vision Ears, nose, mouth, throat: DENIES: Hearing loss Respiratory: DENIES: Apneas, Cough Cardiovascular: DENIES: Chest pain Gastrointestinal: DENIES: Nausea, Vomiting Genitourinary: COMPLAINS OF: Abnormal vaginal bleeding, DENIES: Hematuria Integumentary: DENIES: Rash Hematologic/lymphatic: DENIES: Bruising Psychiatric: DENIES: Anxiety Except as stated in HPI: all other systems reviewed are Neg Past Family Social History Past Medical History C-sections Past Surgical History two c sections Reported Medications Reported Meds & Active Scripts Active Reported Lexapro (Escitalopram Oxalate) 10 Mg Tab 10 Mg PO DAILY Pnv-Burnet 28-0.6-0.4-340 mg ( Without A W/ Fe Fumar) 1 Cap Cap DAILY Allergies: Coded Allergies: No Known Allergies (Unverified , 05/11/17) Active Ordered Medications Current Medications Medications (Trade) Dose Ordered Sig/Waldo Route Start Time Stop Time Status Last Admin (Tylenol) 650 mg Q4H PRN PO 05/11/17 20:15 (Stuartnatal Plus 3 ) 1 tab DAILY PO 05/12/17 09:00 05/15/17 08:24 (Colace) 100 mg DAILY PO 05/12/17 09:00 05/15/17 08:24 (Mag-Al Plus Susp Liq) 30 ml QID PRN PO 05/11/17 20:15 (NS Flush) 2 ml BID IV FLUSH 05/11/17 21:00 05/15/17 08:35 (NS Flush) 2 ml UNSCH PRN IV FLUSH 05/11/17 20:15 (Ambien) 5 mg HS PRN PO 05/11/17 20:15 (Zofran Odt) 4 mg Q6H PRN PO 05/11/17 20:15 (Zofran Inj) 4 mg Q6H PRN IV 05/11/17 20:15 (Ferrous Sulfate) 325 mg BID PO 05/11/17 21:00 05/15/17 08:24 (Lexapro) 10 mg HS PO 05/11/17 21:33 05/14/17 21:11 Family History Family history reviewed and noncontributory to present illness Social History No smoking or ETOH Physical Exam Vital Signs Date Time Temp Pulse Resp B/P Pulse Ox O2 Delivery O2 Flow Rate FiO2 05/15/17 10:11 18 05/15/17 10:00 91 122/66 05/15/17 07:54 98.3 05/15/17 07:00 18 05/15/17 06:14 89 129/65 Physical Exam GENERAL: This is a well-nourished, well-developed patient, in no apparent distress. SKIN: No rashes, ecchymoses or lesions. Cool and dry. HEAD: Atraumatic. Normocephalic. EYES: Extraocular motions intact. No scleral icterus. No injection or drainage. ENT: Nose without bleeding, purulent drainage. Airway patent. NECK: Trachea midline. No JVD or lymphadenopathy. CARDIOVASCULAR: Extremities well perfused RESPIRATORY: Nonlabored, equal chest rise GASTROINTESTINAL: Abdomen gravid MUSCULOSKELETAL: Extremities without clubbing, cyanosis NEUROLOGICAL: Awake and alert. Motor and sensory grossly within normal limits. Normal speech. Lab results reviewed: Yes Result Diagram: 05/11/17201505/11/172015 Assessment and Plan Assessment and Plan -Urology will be available at time of and will plan to be present on Jun 04 -If there is any clinical status change or plans for earlier , contact Urology -Given high risk nature of this case, would recommend transfer to tertiary care center, if possible -Please call with questions Steve Kaufman MD May 15, 2017 20:48
[2017-05-15] MEDS: ESCITALOPRAM OXALATE 10 MG TAB PO SCH (22:15)
[2017-05-16] MEDS: MULTIVIT/MIN/PREN/FOL AC/IRON PRENATAL TAB PO SCH (08:21)
[2017-05-16] MEDS: FERROUS SULFATE 325 MG (65 MG ELEMENTAL IRON) TAB PO SCH ×2 (08:21→20:34)
[2017-05-16] MEDS: DOCUSATE SODIUM 100 MG CAP PO SCH (08:21)
[2017-05-16] MEDS: SODIUM CHLORIDE 0.9% FLUSH 10 ML FLUSH IV FLUSH SCH ×2 (08:21→20:34)
--- NOTE | 2017-05-16 11:55 | PD.OB.ANTE ---
Subjective Diagnosis: (1) Previous section complicating , antepartum condition or complication Diagnosis: Principal (2) Placenta previa antepartum in third trimester Diagnosis: Principal Antepartum ROS: Reports: Other (patient stable on bedrest with no contractions and no bleeding) Objective Vital Signs GENERAL: SKIN: Warm and dry. HEAD: Normocephalic. NECK: Supple, trachea midline. No JVD or lymphadenopathy. GASTROINTESTINAL: Abdomen soft, non-tender, nondistended. no vaginal bleeding MUSCULOSKELETAL: No cyanosis, or edema. BACK: Nontender without obvious deformity. No CVA tenderness. Assessment and Plan Problem List: (1) Previous section complicating , antepartum condition or complication Status: Acute Assessment & Plan: pt aware of concern for accreta given hx of two prior c- sections, pt understands possible need for hysterectomy. all questions answered with pt. will plan for delivery 34 wks, on 06/04 reviewed plan of care with patient and she is aware of high probabilty of hysterectomy and she understands the gravity of this problem. She has agreed with vertical skin incision. will keep type and cross current for 4 units, per anesthesia request (2) Placenta previa antepartum in third trimester Status: Acute Assessment & Plan: cont bedrest in hospital s/p repeat steroids done no need for anymore steroids will give magnesium for neuroprotection if bleeding or cramping increases cont Imelda Castano John William C. MD May 16, 2017 11:55
[2017-05-16] MEDS: ESCITALOPRAM OXALATE 10 MG TAB PO SCH (20:34)
[2017-05-17] MEDS: SODIUM CHLORIDE 0.9% FLUSH 10 ML FLUSH IV FLUSH SCH (09:00)
--- NOTE | 2017-05-17 09:19 | PD.OB.ANTE ---
Subjective Diagnosis: (1) Previous section complicating , antepartum condition or complication Diagnosis: Principal (2) Placenta previa antepartum in third trimester Diagnosis: Principal Objective Lab & Micro Results Test 05/16/17 17:16 Blood Type A POSITIVE Antibody Screen NEGATIVE Crossmatch Leukocyte-Reduced Red Blood Cells Blood Bank Comment Physical Exam GENERAL: Well-nourished, well-developed patient. . ABDOMEN/GI: Abdomen soft, non-tender. Fundus: [-] GENITOURINARY: External Genitalia: intact and normal in appearance Cervix: [-] Dilatation: cl Effacement: [-] Station: [-] Presentation: vtx Membranes: intact Uterine Contractions: [-] FHT's: Category: 1 Baseline: [-] Reactive: [-] Variability: [-] Decels: [-] EXTREMITIES: No cyanosis or edema, non-tender, without signs of DVT. Assessment and Plan Problem List: (1) Previous section complicating , antepartum condition or complication Status: Acute Assessment & Plan: pt aware of concern for accreta given hx of two prior c- sections, pt understands possible need for hysterectomy. all questions answered with pt. will plan for delivery 34 wks, on 06/04 reviewed plan of care with patient and she is aware of high probabilty of hysterectomy and she understands the gravity of this problem. She has agreed with vertical skin incision. will keep type and cross current for 4 units, per anesthesia request gestational 31 4/7weeks (2) Placenta previa antepartum in third trimester Status: Acute Assessment & Plan: cont bedrest in hospital s/p repeat steroids done no need for anymore steroids will give magnesium for neuroprotection if bleeding or cramping increases cont Imelda Castano John William C. MD May 17, 2017 09:19
[2017-05-17] MEDS: MULTIVIT/MIN/PREN/FOL AC/IRON PRENATAL TAB PO SCH (11:39)
[2017-05-17] MEDS: DOCUSATE SODIUM 100 MG CAP PO SCH (11:39)
[2017-05-17] MEDS: FERROUS SULFATE 325 MG (65 MG ELEMENTAL IRON) TAB PO SCH ×2 (11:40→21:07)
[2017-05-17] MEDS: ESCITALOPRAM OXALATE 10 MG TAB PO SCH (21:07)
[2017-05-18] MEDS: SODIUM CHLORIDE 0.9% FLUSH 10 ML FLUSH IV FLUSH SCH ×2 (08:49→21:00)
[2017-05-18] MEDS: MULTIVIT/MIN/PREN/FOL AC/IRON PRENATAL TAB PO SCH (08:49)
[2017-05-18] MEDS: DOCUSATE SODIUM 100 MG CAP PO SCH (08:49)
[2017-05-18] MEDS: FERROUS SULFATE 325 MG (65 MG ELEMENTAL IRON) TAB PO SCH ×2 (08:49→21:00)
[2017-05-18 13:46] LABS: AUTOMATED NEUTROPHIL # 10.6 TH/MM3 (1.8-7.7); BASOPHIL % 0.3 % (0.0-2.0); EOSINOPHIL # 0.1 TH/MM3 (0-0.4); EOSINOPHIL % 0.5 % (0.0-4.0); HEMATOCRIT 32.2 % (35.0-46.0); LYMPH % 14.8 % (9.0-44.0); MEAN CELL VOLUME 89.1 FL (80.0-100.0); MEAN CORPUSCULAR HEMOGLOBIN 29.4 PG (27.0-34.0); MONO % 7.1 % (0.0-8.0); NEUT % 77.3 % (16.0-70.0); PLATELET COUNT 276 TH/MM3 (150-450); RED BLOOD COUNT 3.61 MIL/MM3 (4.00-5.30); RED CELL DISTRIBUTION WIDTH 15.1 % (11.6-17.2); WHITE BLOOD COUNT 13.7 TH/MM3 (4.0-11.0)
[2017-05-18 13:47] LABS: HEMO FLAGS AUTO DIFF
[2017-05-18 14:18] LABS: BANDS 3 % (0-6); METAMYELOCYTES 1 % (0-1); NEUTROPHIL # MANUAL DIFF 10.5 TH/MM3 (1.8-7.7); PLATELET ESTIMATE SMEAR NORMAL (NORMAL); PLATELET MORPHOLOGY NORMAL (NORMAL); POLYS (SEG NEUTROPHILS) 73 % (16-70); SCAN/DIFF FINAL DIFF MANUAL; WBC DIFF SAMPLE 100
[2017-05-18] MEDS: ESCITALOPRAM OXALATE 10 MG TAB PO SCH (21:00)
--- NOTE | 2017-05-18 21:11 | PD.OB.ANTE ---
Subjective Diagnosis: (1) Previous section complicating , antepartum condition or complication (2) Placenta previa antepartum in third trimester Interval History +FM, minimal vaginal staining. denies ctx, lof Objective Lab & Micro Results Test 05/18/17 13:33 White Blood Count 13.7 TH/MM3 Red Blood Count 3.61 MIL/MM3 Hemoglobin 10.6 GM/DL Hematocrit 32.2 % Mean Corpuscular Volume 89.1 FL Mean Corpuscular Hemoglobin 29.4 PG Mean Corpuscular Hemoglobin 33.0 % Concent Red Cell Distribution Width 15.1 % Platelet Count 276 TH/MM3 Mean Platelet Volume 7.8 FL Neutrophils (%) (Auto) 77.3 % Lymphocytes (%) (Auto) 14.8 % Monocytes (%) (Auto) 7.1 % Eosinophils (%) (Auto) 0.5 % Basophils (%) (Auto) 0.3 % Neutrophils # (Auto) 10.6 TH/MM3 Lymphocytes # (Auto) 2.0 TH/MM3 Monocytes # (Auto) 1.0 TH/MM3 Eosinophils # (Auto) 0.1 TH/MM3 Basophils # (Auto) 0.0 TH/MM3 CBC Comment AUTO DIFF Differential Total Cells 100 Counted Neutrophils % (Manual) 73 % Band Neutrophils % 3 % Lymphocytes % 16 % Monocytes % 7 % Neutrophils # (Manual) 10.5 TH/MM3 Metamyelocytes 1 % Differential Comment FINAL DIFF MANUAL Platelet Estimate NORMAL Platelet Morphology Comment NORMAL Red Cell Morphology Comment NORMAL Blood Type A POSITIVE Antibody Screen NEGATIVE Crossmatch Leukocyte-Reduced Red Blood Cells Blood Bank Comment Physical Exam GENERAL: Well-nourished, well-developed patient. CARDIOVASCULAR: Regular rate and rhythm without murmurs, gallops, or rubs. RESPIRATORY: Breath sounds equal bilaterally. No accessory muscle use. ABDOMEN/GI: Abdomen soft, non-tender. Fundus: [-] FHT's: Category: [-]1 Baseline: [-] 140s Reactive: [-] reactive Variability: [-] none Decels: [-] none EXTREMITIES: No cyanosis or edema, non-tender, without signs of DVT. Assessment and Plan Problem List: (1) Previous section complicating , antepartum condition or complication Status: Acute Assessment & Plan: pt aware of concern for accreta given hx of two prior c- sections, pt understands need for hysterectomy. all questions answered with pt. will plan for delivery 34 wks, on 06/04 reviewed plan of care with patient and she is aware of high probabilty of hysterectomy and she understands the gravity of this problem. She has agreed with vertical skin incision. will keep type and cross current for 4 units, per anesthesia request (2) Placenta previa antepartum in third trimester Status: Acute Assessment & Plan: cont bedrest in hospital s/p repeat steroids done no need for anymore steroids will give magnesium for neuroprotection if bleeding or cramping increases cont Bonnie Castano Tedra E. MD May 18, 2017 21:11
[2017-05-19] MEDS: SODIUM CHLORIDE 0.9% FLUSH 10 ML FLUSH IV FLUSH SCH ×2 (08:48→22:01)
[2017-05-19] MEDS: DOCUSATE SODIUM 100 MG CAP PO SCH (08:50)
[2017-05-19] MEDS: MULTIVIT/MIN/PREN/FOL AC/IRON PRENATAL TAB PO SCH (08:50)
[2017-05-19] MEDS: FERROUS SULFATE 325 MG (65 MG ELEMENTAL IRON) TAB PO SCH ×2 (08:50→22:01)
[2017-05-19] MEDS: ESCITALOPRAM OXALATE 10 MG TAB PO SCH (22:01)
--- NOTE | 2017-05-19 22:54 | PD.OB.ANTE ---
Subjective Diagnosis: (1) Previous section complicating , antepartum condition or complication (2) Placenta previa antepartum in third trimester Interval History pt doing well, minimal staining. +FM, denies LOF and contractions Objective Physical Exam GENERAL: Well-nourished, well-developed patient. CARDIOVASCULAR: Regular rate and rhythm without murmurs, gallops, or rubs. RESPIRATORY: Breath sounds equal bilaterally. No accessory muscle use. ABDOMEN/GI: Abdomen soft, non-tender. FHT's: Category: [-] 1 Baseline: [-] 140s Reactive: [-] reactive Variability: [-] Decels: [-] none EXTREMITIES: No cyanosis or edema, non-tender, without signs of DVT. Assessment and Plan Problem List: (1) Previous section complicating , antepartum condition or complication Status: Acute Assessment & Plan: pt aware of concern for accreta given hx of two prior c- sections, pt understands need for hysterectomy. all questions answered with pt. will plan for delivery 34 wks, on 06/04 reviewed plan of care with patient and she is aware of the need for hysterectomy and she understands the gravity of this problem. She has agreed with vertical skin incision. will keep type and cross current for 4 units, per anesthesia request (2) Placenta previa antepartum in third trimester Status: Acute Assessment & Plan: cont bedrest in hospital s/p repeat steroids done no need for anymore steroids will give magnesium for neuroprotection if bleeding or cramping increases cont Bonnie Castano Tedra E. MD May 19, 2017 22:54
[2017-05-20] MEDS: DOCUSATE SODIUM 100 MG CAP PO SCH (09:04)
[2017-05-20] MEDS: MULTIVIT/MIN/PREN/FOL AC/IRON PRENATAL TAB PO SCH (09:04)
[2017-05-20] MEDS: FERROUS SULFATE 325 MG (65 MG ELEMENTAL IRON) TAB PO SCH ×2 (09:05→21:43)
[2017-05-20] MEDS: SODIUM CHLORIDE 0.9% FLUSH 10 ML FLUSH IV FLUSH SCH ×2 (09:07→21:43)
--- NOTE | 2017-05-20 17:13 | PD.OB.ANTE ---
Subjective Diagnosis: (1) Previous section complicating , antepartum condition or complication (2) Placenta previa antepartum in third trimester Interval History doing well. +fm, scant staining. denies contractions, LOF. nl bms Objective Physical Exam GENERAL: Well-nourished, well-developed patient. CARDIOVASCULAR: Regular rate and rhythm without murmurs, gallops, or rubs. RESPIRATORY: Breath sounds equal bilaterally. No accessory muscle use. ABDOMEN/GI: Abdomen soft, non-tender. FHT's: Category: [-] 1 Baseline: [-]140s Reactive: [-] yes Variability: [-] Decels: [-] EXTREMITIES: No cyanosis or edema, non-tender, without signs of DVT. Assessment and Plan Problem List: (1) Previous section complicating , antepartum condition or complication Status: Acute Assessment & Plan: pt aware of concern for accreta given hx of two prior c- sections, pt understands need for hysterectomy. all questions answered with pt. will plan for delivery 34 wks, on 06/04 reviewed plan of care with patient and she is aware of the need for hysterectomy and she understands the gravity of this problem. She has agreed with vertical skin incision. will keep type and cross current for 4 units, per anesthesia request (2) Placenta previa antepartum in third trimester Status: Acute Assessment & Plan: cont bedrest in hospital s/p repeat steroids done no need for anymore steroids will give magnesium for neuroprotection if bleeding or cramping increases cont Bonnie Castano Tedra E. MD May 20, 2017 17:13
[2017-05-20] MEDS: ESCITALOPRAM OXALATE 10 MG TAB PO SCH (21:43)
[2017-05-21 06:12] LABS: AUTOMATED NEUTROPHIL # 8.8 TH/MM3 (1.8-7.7); BASOPHIL % 0.2 % (0.0-2.0); EOSINOPHIL # 0.1 TH/MM3 (0-0.4); EOSINOPHIL % 1.1 % (0.0-4.0); HEMATOCRIT 32.5 % (35.0-46.0); HEMO FLAGS DIFF FINAL; LYMPH % 17.2 % (9.0-44.0); MEAN CELL VOLUME 90.3 FL (80.0-100.0); MEAN CORPUSCULAR HEMOGLOBIN 29.7 PG (27.0-34.0); MEAN CORPUSCULAR HGB CONC 32.9 % (32.0-36.0); MONO % 4.9 % (0.0-8.0); NEUT % 76.6 % (16.0-70.0); PLATELET COUNT 254 TH/MM3 (150-450); WHITE BLOOD COUNT 11.5 TH/MM3 (4.0-11.0)
[2017-05-21] MEDS: SODIUM CHLORIDE 0.9% FLUSH 10 ML FLUSH IV FLUSH SCH (09:00)
[2017-05-21] MEDS: MULTIVIT/MIN/PREN/FOL AC/IRON PRENATAL TAB PO SCH (09:02)
[2017-05-21] MEDS: DOCUSATE SODIUM 100 MG CAP PO SCH (09:02)
[2017-05-21] MEDS: FERROUS SULFATE 325 MG (65 MG ELEMENTAL IRON) TAB PO SCH ×2 (09:02→21:13)
--- NOTE | 2017-05-21 13:10 | PD.OB.ANTE ---
Subjective Diagnosis: (1) Previous section complicating , antepartum condition or complication (2) Placenta previa antepartum in third trimester Interval History +FM, denies LOF, CTX. min staining. nl BMs daily Objective Lab & Micro Results Test 05/21/17 05:40 White Blood Count 11.5 TH/MM3 Red Blood Count 3.60 MIL/MM3 Hemoglobin 10.7 GM/DL Hematocrit 32.5 % Mean Corpuscular Volume 90.3 FL Mean Corpuscular Hemoglobin 29.7 PG Mean Corpuscular Hemoglobin 32.9 % Concent Red Cell Distribution Width 15.0 % Platelet Count 254 TH/MM3 Mean Platelet Volume 8.0 FL Neutrophils (%) (Auto) 76.6 % Lymphocytes (%) (Auto) 17.2 % Monocytes (%) (Auto) 4.9 % Eosinophils (%) (Auto) 1.1 % Basophils (%) (Auto) 0.2 % Neutrophils # (Auto) 8.8 TH/MM3 Lymphocytes # (Auto) 2.0 TH/MM3 Monocytes # (Auto) 0.6 TH/MM3 Eosinophils # (Auto) 0.1 TH/MM3 Basophils # (Auto) 0.0 TH/MM3 CBC Comment DIFF FINAL Differential Comment Blood Type A POSITIVE Antibody Screen NEGATIVE Crossmatch Leukocyte-Reduced Red Blood Cells Blood Bank Comment Physical Exam GENERAL: Well-nourished, well-developed patient. CARDIOVASCULAR: Regular rate and rhythm without murmurs, gallops, or rubs. RESPIRATORY: Breath sounds equal bilaterally. No accessory muscle use. ABDOMEN/GI: Abdomen soft, non-tender. FHT's: Category: [-] 1 Baseline: [-] 140s Reactive: [-]yes Variability: [-] Decels: [-] EXTREMITIES: No cyanosis or edema, non-tender, without signs of DVT. Assessment and Plan Problem List: (1) Previous section complicating , antepartum condition or complication Status: Acute Assessment & Plan: pt aware of concern for accreta given hx of two prior c- sections, pt understands need for hysterectomy. all questions answered with pt. will plan for delivery 34 wks, on 06/04 reviewed plan of care with patient and she is aware of the need for hysterectomy and she understands the gravity of this problem. She has agreed with vertical skin incision. will keep type and cross current for 4 units, per anesthesia request (2) Placenta previa antepartum in third trimester Status: Acute Assessment & Plan: cont bedrest in hospital s/p repeat steroids done no need for anymore steroids will give magnesium for neuroprotection if bleeding or cramping increases cont Bonnie Castano Tedra E. MD May 21, 2017 13:10
[2017-05-21 16:15] VITALS: BP 145/63; PULSE 94; RESP 20
[2017-05-21 20:14] VITALS: RESP 18; TEMP 98.1
[2017-05-21 20:15] VITALS: BP 128/69; PULSE 86
[2017-05-21] MEDS: ESCITALOPRAM OXALATE 10 MG TAB PO SCH (21:13)
[2017-05-22] VITALS (10 sets, daily range): BP systolic 129–149; BP diastolic 65–78; PULSE 89–96; RESP 15–18; TEMP 97.8–98.4
[2017-05-22] MEDS: MULTIVIT/MIN/PREN/FOL AC/IRON PRENATAL TAB PO SCH (08:42)
[2017-05-22] MEDS: DOCUSATE SODIUM 100 MG CAP PO SCH (08:42)
[2017-05-22] MEDS: FERROUS SULFATE 325 MG (65 MG ELEMENTAL IRON) TAB PO SCH ×2 (08:42→21:21)
[2017-05-22] MEDS: SODIUM CHLORIDE 0.9% FLUSH 10 ML FLUSH IV FLUSH SCH ×2 (08:43→21:22)
[2017-05-22] MEDS: ESCITALOPRAM OXALATE 10 MG TAB PO SCH (21:21)
[2017-05-23] VITALS (9 sets, daily range): BP systolic 116–132; BP diastolic 61–78; PULSE 88–105; RESP 16–18; TEMP 97.8–98.4
[2017-05-23] MEDS: MULTIVIT/MIN/PREN/FOL AC/IRON PRENATAL TAB PO SCH (09:21)
[2017-05-23] MEDS: FERROUS SULFATE 325 MG (65 MG ELEMENTAL IRON) TAB PO SCH ×2 (09:21→21:22)
[2017-05-23] MEDS: DOCUSATE SODIUM 100 MG CAP PO SCH (09:21)
[2017-05-23] MEDS: SODIUM CHLORIDE 0.9% FLUSH 10 ML FLUSH IV FLUSH SCH ×2 (12:04→21:22)
[2017-05-23] MEDS: ESCITALOPRAM OXALATE 10 MG TAB PO SCH (21:22)
[2017-05-24] VITALS (8 sets, daily range): BP systolic 118–131; BP diastolic 68–73; PULSE 92–98; RESP 17–18; TEMP 98.1–98.8
[2017-05-24] MEDS: MULTIVIT/MIN/PREN/FOL AC/IRON PRENATAL TAB PO SCH (08:42)
[2017-05-24] MEDS: SODIUM CHLORIDE 0.9% FLUSH 10 ML FLUSH IV FLUSH SCH ×2 (08:42→21:33)
[2017-05-24] MEDS: DOCUSATE SODIUM 100 MG CAP PO SCH (08:42)
[2017-05-24] MEDS: FERROUS SULFATE 325 MG (65 MG ELEMENTAL IRON) TAB PO SCH ×2 (08:42→21:33)
[2017-05-24] MEDS: ESCITALOPRAM OXALATE 10 MG TAB PO SCH (21:33)
--- NOTE | 2017-05-24 21:49 | PD.OB.ANTE ---
Subjective Diagnosis: (1) Previous section complicating , antepartum condition or complication Diagnosis: Principal (2) Placenta previa antepartum in third trimester Diagnosis: Principal Objective Vital Signs Vital Signs Date Time Temp Pulse Resp B/P Pulse Ox O2 Delivery O2 Flow Rate FiO2 05/24/17 19:27 92 119/73 05/24/17 19:26 98.8 18 05/24/17 17:00 98.1 05/24/17 17:00 18 05/24/17 13:13 17 05/24/17 13:04 98 118/72 05/24/17 09:00 98.1 05/24/17 08:52 18 05/24/17 08:45 95 131/68 Lab & Micro Results Test 05/24/17 11:18 Blood Type A POSITIVE Antibody Screen NEGATIVE Crossmatch Leukocyte-Reduced Red Blood Cells Blood Bank Comment Physical Exam GENERAL: Well-nourished, well-developed patient. ABDOMEN/GI: Abdomen soft, non-tender. Fundus: [-] GENITOURINARY: External Genitalia: intact and normal in appearance Cervix: not performed Dilatation: [-] Effacement: [-] Station: [-] Presentation: [-] Membranes: [-] Uterine Contractions: [-] FHT's: Category: [-] Baseline: [-] Reactive: [-] Variability: [-] Decels: [-] EXTREMITIES: No cyanosis or edema, non-tender, without signs of DVT. Assessment and Plan Problem List: (1) Previous section complicating , antepartum condition or complication Status: Acute Assessment & Plan: pt aware of concern for accreta given hx of two prior c- sections, pt understands need for hysterectomy. all questions answered with pt. will plan for delivery 34 wks, on 06/04 reviewed plan of care with patient and she is aware of the need for hysterectomy and she understands the gravity of this problem. She has agreed with vertical skin incision. will keep type and cross current for 4 units, per anesthesia request (2) Placenta previa antepartum in third trimester Status: Acute Assessment & Plan: patient resting no contractions no bleeding cont Omaira, Sage Segura MD May 24, 2017 21:49
--- NOTE | 2017-05-24 21:52 | PD.OB.ANTE ---
Subjective Diagnosis: (1) Previous section complicating , antepartum condition or complication Diagnosis: Principal (2) Placenta previa antepartum in third trimester Diagnosis: Principal Interval History Late entry from 05/23/2017. Patient doing well and uterus is quiet and no contractions. Patient understands care plan questions answered Objective Vital Signs Vital Signs Date Time Temp Pulse Resp B/P Pulse Ox O2 Delivery O2 Flow Rate FiO2 05/24/17 19:27 92 119/73 05/24/17 19:26 98.8 18 05/24/17 17:00 98.1 05/24/17 17:00 18 05/24/17 13:13 17 05/24/17 13:04 98 118/72 05/24/17 09:00 98.1 05/24/17 08:52 18 05/24/17 08:45 95 131/68 Lab & Micro Results Test 05/24/17 11:18 Blood Type A POSITIVE Antibody Screen NEGATIVE Crossmatch Leukocyte-Reduced Red Blood Cells Blood Bank Comment Physical Exam GENERAL: Well-nourished, well-developed patient. Patient in good spirits ABDOMEN/GI: Abdomen soft, non-tender. Fundus: [-] GENITOURINARY: External Genitalia: intact and normal in appearance Cervix: [-] Dilatation: [-] Effacement: [-] Station: [-] Presentation: [-] Membranes: [-] Uterine Contractions: [-] FHT's: Category: 1 Baseline: [-] Reactive: [-] Variability: [-] Decels: [-] EXTREMITIES: No cyanosis or edema, non-tender, without signs of DVT. Assessment and Plan Problem List: (1) Previous section complicating , antepartum condition or complication Status: Acute Assessment & Plan: pt aware of concern for accreta given hx of two prior c- sections, pt understands need for hysterectomy. all questions answered with pt. will plan for delivery 34 wks, on 06/04/17. she is aware of likelyhood of hyst (2) Placenta previa antepartum in third trimester Status: Acute Assessment & Plan: patient resting no contractions no bleeding cont Imelda Castano John William C. MD May 24, 2017 21:52
[2017-05-25 07:29] VITALS: BP 128/70; PULSE 91; RESP 18; TEMP 98
[2017-05-25] MEDS: MULTIVIT/MIN/PREN/FOL AC/IRON PRENATAL TAB PO SCH (08:45)
[2017-05-25] MEDS: FERROUS SULFATE 325 MG (65 MG ELEMENTAL IRON) TAB PO SCH ×2 (08:45→21:00)
[2017-05-25] MEDS: DOCUSATE SODIUM 100 MG CAP PO SCH (08:45)
[2017-05-25] MEDS: SODIUM CHLORIDE 0.9% FLUSH 10 ML FLUSH IV FLUSH SCH ×2 (09:26→21:00)
--- NOTE | 2017-05-25 20:45 | PD.OB.ANTE ---
Subjective Diagnosis: (1) Previous section complicating , antepartum condition or complication (2) Placenta previa antepartum in third trimester Interval History doing well. denies contractions, LOF. +fm, scant vaginal bleeding Objective Vital Signs Vital Signs Date Time Temp Pulse Resp B/P Pulse Ox O2 Delivery O2 Flow Rate FiO2 05/25/17 07:29 91 128/70 05/25/17 07:29 98.0 18 Physical Exam GENERAL: Well-nourished, well-developed patient. CARDIOVASCULAR: Regular rate and rhythm without murmurs, gallops, or rubs. RESPIRATORY: Breath sounds equal bilaterally. No accessory muscle use. ABDOMEN/GI: Abdomen soft, non-tender. FHT's: Category: [-] 1 Baseline: [-] 140s Reactive: [-] yes Variability: [-] Decels: [-] EXTREMITIES: No cyanosis or edema, non-tender, without signs of DVT. Assessment and Plan Problem List: (1) Previous section complicating , antepartum condition or complication Status: Acute Assessment & Plan: pt aware of concern for accreta given hx of two prior c- sections, pt understands need for hysterectomy with vertical skin incision. all questions answered with pt. will plan for delivery at 34 wks, on 06/04/17. (2) Placenta previa antepartum in third trimester Status: Acute Assessment & Plan: cont SCDs, bedrest will reviewed with MFM in am, repeat MRI next week and f/u u/s. Marcela Nicole MD May 25, 2017 20:45
[2017-05-25] MEDS: ESCITALOPRAM OXALATE 10 MG TAB PO SCH (21:00)
[2017-05-26] MEDS: SODIUM CHLORIDE 0.9% FLUSH 10 ML FLUSH IV FLUSH SCH ×2 (09:00→21:34)
[2017-05-26] MEDS: DOCUSATE SODIUM 100 MG CAP PO SCH (09:10)
[2017-05-26] MEDS: MULTIVIT/MIN/PREN/FOL AC/IRON PRENATAL TAB PO SCH (09:10)
[2017-05-26] MEDS: FERROUS SULFATE 325 MG (65 MG ELEMENTAL IRON) TAB PO SCH ×2 (09:11→21:33)
--- NOTE | 2017-05-26 12:44 | PD.OB.ANTE ---
Subjective Diagnosis: (1) Previous section complicating , antepartum condition or complication (2) Placenta previa antepartum in third trimester Interval History doing well. denies LOF/CTX +minimal staining Objective Physical Exam GENERAL: Well-nourished, well-developed patient. CARDIOVASCULAR: Regular rate and rhythm without murmurs, gallops, or rubs. RESPIRATORY: Breath sounds equal bilaterally. No accessory muscle use. ABDOMEN/GI: Abdomen soft, non-tender. FHT's: Category: [-] 1 Baseline: [-] 140s Reactive: [-] yes Variability: [-] Decels: [-] EXTREMITIES: No cyanosis or edema, non-tender, without signs of DVT. Assessment and Plan Problem List: (1) Previous section complicating , antepartum condition or complication Status: Acute Assessment & Plan: pt aware of concern for accreta given hx of two prior c- sections, pt understands need for hysterectomy with vertical skin incision. all questions answered with pt. will plan for delivery at 34 wks, on 06/04/17. (2) Placenta previa antepartum in third trimester Status: Acute Assessment & Plan: cont SCDs, bedrest will reviewed with MFM on ,to consider repeat MRI next week and f/u u/s with mfm. Marcela Nicole MD May 26, 2017 12:44
[2017-05-26] MEDS: ESCITALOPRAM OXALATE 10 MG TAB PO SCH (21:33)
[2017-05-27] MEDS: FERROUS SULFATE 325 MG (65 MG ELEMENTAL IRON) TAB PO SCH ×2 (08:52→21:39)
[2017-05-27] MEDS: DOCUSATE SODIUM 100 MG CAP PO SCH (08:52)
[2017-05-27] MEDS: MULTIVIT/MIN/PREN/FOL AC/IRON PRENATAL TAB PO SCH (08:52)
[2017-05-27] MEDS: SODIUM CHLORIDE 0.9% FLUSH 10 ML FLUSH IV FLUSH SCH ×2 (08:53→21:40)
[2017-05-27 16:07] VITALS: BP 127/72; PULSE 91
--- NOTE | 2017-05-27 19:01 | PD.OB.ANTE ---
Subjective Diagnosis: (1) Previous section complicating , antepartum condition or complication (2) Placenta previa antepartum in third trimester Interval History pt without complaints. minimal bleeding/staining. +fm, denies LOF/CTX Objective Vital Signs Vital Signs Date Time Temp Pulse Resp B/P Pulse Ox O2 Delivery O2 Flow Rate FiO2 05/27/17 16:07 91 127/72 Lab & Micro Results Test 05/27/17 09:24 Blood Type A POSITIVE Antibody Screen NEGATIVE Crossmatch Leukocyte-Reduced Red Blood Cells Blood Bank Comment Physical Exam GENERAL: Well-nourished, well-developed patient. CARDIOVASCULAR: Regular rate and rhythm without murmurs, gallops, or rubs. RESPIRATORY: Breath sounds equal bilaterally. No accessory muscle use. ABDOMEN/GI: Abdomen soft, non-tender. FHT's: Category: [-]1 Baseline: [-] 140s Reactive: [-] yes Variability: [-] Decels: [-] EXTREMITIES: No cyanosis or edema, non-tender, without signs of DVT. Assessment and Plan Problem List: (1) Previous section complicating , antepartum condition or complication Status: Acute Assessment & Plan: pt aware of concern for accreta given hx of two prior c- sections, pt understands need for hysterectomy with vertical skin incision. all questions answered with pt. will plan for delivery at 34 wks, on 06/04/17. (2) Placenta previa antepartum in third trimester Status: Acute Assessment & Plan: cont SCDs, bedrest reviewed with MFM who recommended repeating steroids at 33 5/7wks X 2 doses prior to at 34 wks. Marcela Nicole MD May 27, 2017 19:00
[2017-05-27 20:00] VITALS: BP 131/76; PULSE 94; TEMP 98.2
[2017-05-27] MEDS: ESCITALOPRAM OXALATE 10 MG TAB PO SCH (21:39)
[2017-05-28 08:22] VITALS: RESP 16; TEMP 98.1
[2017-05-28 08:23] VITALS: BP 120/64; PULSE 89
[2017-05-28] MEDS: DOCUSATE SODIUM 100 MG CAP PO SCH (08:23)
[2017-05-28] MEDS: FERROUS SULFATE 325 MG (65 MG ELEMENTAL IRON) TAB PO SCH ×2 (08:23→21:50)
[2017-05-28] MEDS: MULTIVIT/MIN/PREN/FOL AC/IRON PRENATAL TAB PO SCH (08:23)
[2017-05-28] MEDS: SODIUM CHLORIDE 0.9% FLUSH 10 ML FLUSH IV FLUSH SCH ×2 (08:25→21:50)
[2017-05-28 12:16] VITALS: RESP 16; TEMP 98.2
[2017-05-28 12:17] VITALS: BP 137/77; PULSE 91
--- NOTE | 2017-05-28 14:01 | PD.OB.ANTE ---
Subjective Diagnosis: (1) Previous section complicating , antepartum condition or complication (2) Placenta previa antepartum in third trimester Interval History pt feeling down today and tearful. misses her . denies si/hi. denies vaginal bleeding, contractions or LOF Objective Vital Signs Vital Signs Date Time Temp Pulse Resp B/P Pulse Ox O2 Delivery O2 Flow Rate FiO2 05/28/17 12:17 91 137/77 05/28/17 12:16 98.2 16 05/28/17 08:23 89 120/64 05/28/17 08:22 98.1 16 05/27/17 20:00 94 131/76 05/27/17 20:00 98.2 05/27/17 16:07 91 127/72 Physical Exam GENERAL: Well-nourished, well-developed patient. CARDIOVASCULAR: Regular rate and rhythm without murmurs, gallops, or rubs. RESPIRATORY: Breath sounds equal bilaterally. No accessory muscle use. ABDOMEN/GI: Abdomen soft, non-tender. FHT's: Category: [-] 2 Baseline: [-] 130s Reactive: [-] yes Variability: [-] Decels: [-] EXTREMITIES: No cyanosis or edema, non-tender, without signs of DVT. Assessment and Plan Problem List: (1) Previous section complicating , antepartum condition or complication Status: Acute Assessment & Plan: pt aware of concern for accreta given hx of two prior c- sections, pt understands need for hysterectomy with vertical skin incision. all questions answered with pt. will plan for delivery at 34 wks, on 06/04/17. (2) Placenta previa antepartum in third trimester Status: Acute Assessment & Plan: cont SCDs, bedrest reviewed with M who recommended repeating steroids at 33 5/7wks X 2 doses prior to at 34 wks. case also reviewed with urology who is considering cystoscopy with stents (3) Depression affecting in third trimester, antepartum Status: Acute Assessment & Plan: will increase lexapro to 20 mg Marcela Nicole MD May 28, 2017 14:01
[2017-05-28 16:00] VITALS: BP 141/55; PULSE 95; RESP 14; TEMP 98.3
[2017-05-28 19:47] VITALS: BP 135/65; PULSE 85; RESP 16; TEMP 98.3
[2017-05-28] MEDS: ESCITALOPRAM OXALATE 20 MG TAB PO SCH (21:50)
[2017-05-29] VITALS (8 sets, daily range): BP systolic 119–143; BP diastolic 53–63; PULSE 90–94; RESP 16–18; TEMP 97.9–99.1
[2017-05-29] MEDS: DOCUSATE SODIUM 100 MG CAP PO SCH (08:32)
[2017-05-29] MEDS: SODIUM CHLORIDE 0.9% FLUSH 10 ML FLUSH IV FLUSH SCH ×2 (08:32→21:17)
[2017-05-29] MEDS: FERROUS SULFATE 325 MG (65 MG ELEMENTAL IRON) TAB PO SCH ×2 (08:32→21:16)
[2017-05-29] MEDS: MULTIVIT/MIN/PREN/FOL AC/IRON PRENATAL TAB PO SCH (08:32)
[2017-05-29] MEDS: ESCITALOPRAM OXALATE 20 MG TAB PO SCH (21:16)
--- NOTE | 2017-05-29 21:36 | PD.OB.ANTE ---
Subjective Diagnosis: (1) Previous section complicating , antepartum condition or complication (2) Placenta previa antepartum in third trimester (3) Depression affecting in third trimester, antepartum Interval History pt doing well. mood improved today. min staining. +FM denies contractions or LOF Objective Vital Signs Vital Signs Date Time Temp Pulse Resp B/P Pulse Ox O2 Delivery O2 Flow Rate FiO2 05/29/17 20:09 97.9 05/29/17 20:08 18 05/29/17 20:07 92 143/53 05/29/17 15:15 94 18 119/61 05/29/17 15:14 98.8 05/29/17 11:30 92 121/58 05/29/17 11:30 99.1 16 05/29/17 09:03 90 132/63 05/29/17 09:03 98.8 16 Physical Exam GENERAL: Well-nourished, well-developed patient. CARDIOVASCULAR: Regular rate and rhythm without murmurs, gallops, or rubs. RESPIRATORY: Breath sounds equal bilaterally. No accessory muscle use. ABDOMEN/GI: Abdomen soft, non-tender. FHT's: Category: [-]1 Baseline: [-] 140s Reactive: [-] yes Variability: [-] Decels: [-] EXTREMITIES: No cyanosis or edema, non-tender, without signs of DVT. Assessment and Plan Problem List: (1) Previous section complicating , antepartum condition or complication Status: Acute Assessment & Plan: pt aware of concern for accreta given hx of two prior c- sections, pt understands need for hysterectomy with vertical skin incision. all questions answered with pt. will plan for delivery at 34 wks, on 06/04/17. (2) Placenta previa antepartum in third trimester Status: Acute Assessment & Plan: cont SCDs, bedrest reviewed with MFM who recommended repeating steroids at 33 5/7wks X 2 doses prior to at 34 wks. case also reviewed with urology who is considering cystoscopy with stents (3) Depression affecting in third trimester, antepartum Status: Acute Assessment & Plan: cont lexapro to 20 mg Marcela Nicole MD May 29, 2017 21:36
[2017-05-30] VITALS (10 sets, daily range): BP systolic 122–138; BP diastolic 58–80; PULSE 84–94; RESP 16–18; TEMP 98.1–98.4
[2017-05-30 04:37] LABS: AUTOMATED NEUTROPHIL # 7.2 TH/MM3 (1.8-7.7); BASOPHIL % 0.2 % (0.0-2.0); EOSINOPHIL # 0.1 TH/MM3 (0-0.4); EOSINOPHIL % 1.2 % (0.0-4.0); HEMATOCRIT 27.9 % (35.0-46.0); HEMO FLAGS DIFF FINAL; LYMPH % 19.9 % (9.0-44.0); MEAN CELL VOLUME 88.3 FL (80.0-100.0); MEAN CORPUSCULAR HGB CONC 35.1 % (32.0-36.0); MONO % 6.3 % (0.0-8.0); NEUT % 72.4 % (16.0-70.0); PLATELET COUNT 191 TH/MM3 (150-450); RED BLOOD COUNT 3.16 MIL/MM3 (4.00-5.30); RED CELL DISTRIBUTION WIDTH 15.2 % (11.6-17.2); WHITE BLOOD COUNT 9.9 TH/MM3 (4.0-11.0)
[2017-05-30] MEDS: SODIUM CHLORIDE 0.9% FLUSH 10 ML FLUSH IV FLUSH SCH ×2 (09:00→21:40)
[2017-05-30] MEDS: FERROUS SULFATE 325 MG (65 MG ELEMENTAL IRON) TAB PO SCH ×2 (09:12→21:40)
[2017-05-30] MEDS: MULTIVIT/MIN/PREN/FOL AC/IRON PRENATAL TAB PO SCH (09:12)
[2017-05-30] MEDS: DOCUSATE SODIUM 100 MG CAP PO SCH (09:12)
[2017-05-30] MEDS: ESCITALOPRAM OXALATE 20 MG TAB PO SCH (21:40)
--- NOTE | 2017-05-30 23:04 | PD.OB.ANTE ---
Subjective Diagnosis: (1) Previous section complicating , antepartum condition or complication (2) Placenta previa antepartum in third trimester (3) Depression affecting in third trimester, antepartum Interval History doing well. +fm, denies LOF, VB, CTX. mood is good Objective Vital Signs Vital Signs Date Time Temp Pulse Resp B/P Pulse Ox O2 Delivery O2 Flow Rate FiO2 05/30/17 21:42 18 05/30/17 19:07 89 16 128/70 05/30/17 13:50 16 05/30/17 13:49 94 122/78 05/30/17 08:06 98.1 84 16 131/70 05/30/17 06:23 16 05/30/17 04:00 16 05/30/17 00:03 98.4 18 05/30/17 00:01 94 138/80 Lab & Micro Results Test 05/30/17 05/30/17 04:12 11:33 White Blood Count 9.9 TH/MM3 Red Blood Count 3.16 MIL/MM3 Hemoglobin 9.8 GM/DL Hematocrit 27.9 % Mean Corpuscular Volume 88.3 FL Mean Corpuscular Hemoglobin 31.0 PG Mean Corpuscular Hemoglobin 35.1 % Concent Red Cell Distribution Width 15.2 % Platelet Count 191 TH/MM3 Mean Platelet Volume 8.4 FL Neutrophils (%) (Auto) 72.4 % Lymphocytes (%) (Auto) 19.9 % Monocytes (%) (Auto) 6.3 % Eosinophils (%) (Auto) 1.2 % Basophils (%) (Auto) 0.2 % Neutrophils # (Auto) 7.2 TH/MM3 Lymphocytes # (Auto) 2.0 TH/MM3 Monocytes # (Auto) 0.6 TH/MM3 Eosinophils # (Auto) 0.1 TH/MM3 Basophils # (Auto) 0.0 TH/MM3 CBC Comment DIFF FINAL Differential Comment Blood Type A POSITIVE Antibody Screen NEGATIVE Crossmatch Leukocyte-Reduced Red Blood Cells Blood Bank Comment Physical Exam GENERAL: Well-nourished, well-developed patient. CARDIOVASCULAR: Regular rate and rhythm without murmurs, gallops, or rubs. RESPIRATORY: Breath sounds equal bilaterally. No accessory muscle use. ABDOMEN/GI: Abdomen soft, non-tender. FHT's: Category: [-] 1 Baseline: [-] 140s Reactive: [-] yes Variability: [-] Decels: [-] EXTREMITIES: No cyanosis or edema, non-tender, without signs of DVT. Assessment and Plan Problem List: (1) Previous section complicating , antepartum condition or complication Status: Acute Assessment & Plan: pt aware of concern for accreta given hx of two prior c- sections, pt understands need for hysterectomy with vertical skin incision. all questions answered with pt. will plan for delivery at 34 wks, on 06/04/17. (2) Placenta previa antepartum in third trimester Status: Acute Assessment & Plan: cont SCDs, bedrest reviewed with MFM who recommended repeating steroids at 33 5/7wks X 2 doses prior to at 34 wks. case also reviewed with urology who is considering cystoscopy with stents (3) Depression affecting in third trimester, antepartum Status: Acute Assessment & Plan: cont lexapro to 20 mg Marcela Nicole MD May 30, 2017 23:04
[2017-05-31] VITALS (11 sets, daily range): BP systolic 108–145; BP diastolic 55–75; PULSE 87–97; RESP 12–18; TEMP 97.2–98
[2017-05-31] MEDS: SODIUM CHLORIDE 0.9% FLUSH 10 ML FLUSH IV FLUSH SCH ×2 (09:00→20:58)
[2017-05-31] MEDS: MULTIVIT/MIN/PREN/FOL AC/IRON PRENATAL TAB PO SCH (09:02)
[2017-05-31] MEDS: FERROUS SULFATE 325 MG (65 MG ELEMENTAL IRON) TAB PO SCH ×2 (09:03→20:58)
[2017-05-31] MEDS: DOCUSATE SODIUM 100 MG CAP PO SCH (09:03)
--- NOTE | 2017-05-31 13:38 | PD.OB.ANTE ---
Subjective Diagnosis: (1) Previous section complicating , antepartum condition or complication (2) Placenta previa antepartum in third trimester (3) Depression affecting in third trimester, antepartum Interval History pt passed a banana sized clot early this morning. minimal bleeding since then. +cramping at time of passing clot, now resolved. +FM, denies LOF Objective Vital Signs Vital Signs Date Time Temp Pulse Resp B/P Pulse Ox O2 Delivery O2 Flow Rate FiO2 05/31/17 12:04 97 124/70 05/31/17 12:03 16 05/31/17 08:01 98.0 16 05/31/17 08:00 87 124/69 05/31/17 03:00 18 05/31/17 02:25 91 145/75 05/31/17 00:00 18 05/31/17 00:00 18 05/30/17 23:59 87 132/58 05/30/17 23:59 87 132/58 05/30/17 21:42 18 05/30/17 19:07 89 16 128/70 05/30/17 13:50 16 05/30/17 13:49 94 122/78 Physical Exam GENERAL: Well-nourished, well-developed patient. CARDIOVASCULAR: Regular rate and rhythm without murmurs, gallops, or rubs. RESPIRATORY: Breath sounds equal bilaterally. No accessory muscle use. ABDOMEN/GI: Abdomen soft, non-tender. FHT's: Category: [-] 1 Baseline: [-] 130s Reactive: [-] yes EXTREMITIES: No cyanosis or edema, non-tender, without signs of DVT. Assessment and Plan Problem List: (1) Previous section complicating , antepartum condition or complication Status: Acute Assessment & Plan: pt aware of concern for accreta given hx of two prior c- sections, pt understands need for hysterectomy with vertical skin incision. consent signed today. all questions answered with pt. will plan for delivery at 34 wks, on 06/04/17. (2) Placenta previa antepartum in third trimester Status: Acute Assessment & Plan: cont SCDs, bedrest reviewed with MFM who recommended repeating steroids at 33 5/7wks X 2 doses prior to at 34 wks. case also reviewed with urology who is considering cystoscopy with stents (3) Depression affecting in third trimester, antepartum Status: Acute Assessment & Plan: cont lexapro to 20 mg Marcela Nicole MD May 31, 2017 13:38
[2017-05-31] MEDS: ESCITALOPRAM OXALATE 20 MG TAB PO SCH (20:58)
[2017-06-01] VITALS (21 sets, daily range): BP systolic 114–132; BP diastolic 55–71; PULSE 89–98; RESP 13–18; TEMP 97.9–98.7; O2SAT 98
[2017-06-01] MEDS: FERROUS SULFATE 325 MG (65 MG ELEMENTAL IRON) TAB PO SCH ×2 (09:14→21:00)
[2017-06-01] MEDS: MULTIVIT/MIN/PREN/FOL AC/IRON PRENATAL TAB PO SCH (09:14)
[2017-06-01] MEDS: DOCUSATE SODIUM 100 MG CAP PO SCH (09:14)
[2017-06-01] MEDS: SODIUM CHLORIDE 0.9% FLUSH 10 ML FLUSH IV FLUSH SCH ×2 (09:14→20:43)
[2017-06-01] MEDS ORDERED: LACTATED RINGER'S 1000 ML INJ 1,000 ML IV ONE (18:00)
[2017-06-01] MEDS ORDERED: MAGNESIUM SULFATE 40 GM PREMIX 1,000 ML ONE (19:20)
[2017-06-01] MEDS ORDERED: MAGNESIUM SULFATE 4 GM PREMIX 100 ML ONE (19:23)
--- NOTE | 2017-06-01 19:24 | PD.OB.ANTE ---
Subjective Diagnosis: (1) Previous section complicating , antepartum condition or complication (2) Placenta previa antepartum in third trimester (3) Depression affecting in third trimester, antepartum Interval History pt c/o feeling mild contractions. monitor picking up contractions every 4-5 min. min old blood. +FM, denies contractions. mood okay, denies si/hi. Objective Vital Signs Vital Signs Date Time Temp Pulse Resp B/P Pulse Ox O2 Delivery O2 Flow Rate FiO2 06/01/17 15:44 98.2 18 06/01/17 15:44 98 117/56 06/01/17 12:30 98.1 06/01/17 11:08 91 118/63 06/01/17 11:08 17 06/01/17 07:20 13 06/01/17 07:19 98.7 95 114/58 06/01/17 06:32 89 119/62 06/01/17 06:32 97.9 06/01/17 06:31 13 06/01/17 03:00 90 125/71 06/01/17 03:00 98.1 13 98 05/31/17 23:00 97.2 91 12 125/63 Physical Exam GENERAL: Well-nourished, well-developed patient. CARDIOVASCULAR: Regular rate and rhythm without murmurs, gallops, or rubs. RESPIRATORY: Breath sounds equal bilaterally. No accessory muscle use. ABDOMEN/GI: Abdomen soft, non-tender. FHT's: Category: [-] 1 Baseline: [-] 140s Reactive: [-] yes Variability: [-] Decels: [-] EXTREMITIES: No cyanosis or edema, non-tender, without signs of DVT. Assessment and Plan Problem List: (1) Previous section complicating , antepartum condition or complication Status: Acute Assessment & Plan: pt aware of concern for accreta given hx of two prior c- sections, pt understands need for hysterectomy with vertical skin incision. consent signed today. all questions answered with pt. will plan for delivery at 34 wks, on 06/04/17. (2) Placenta previa antepartum in third trimester Status: Acute Assessment & Plan: cont SCDs, bedrest (3) Depression affecting in third trimester, antepartum Status: Acute Assessment & Plan: cont lexapro to 20 mg Assessment and Plan will start mag for neuroprotection and for contractions and will repeat steroids now also Marcela Nicole MD Jun 01, 2017 19:24
[2017-06-01] MEDS ORDERED: MAGNESIUM SULFATE 4GRAM PRMIX-LOAD DOSE IV ONE (19:30)
[2017-06-01] MEDS ORDERED: CALCIUM GLUCONATE 10% 1 GM/10 ML VIAL IV PRN (19:30)
[2017-06-01] MEDS ORDERED: MAGNESIUM SULFATE 40 GM PREMIX 1,000 ML IV SCH (19:30)
[2017-06-01] MEDS: BETAMETHASONE SOD PHOS/ACETATE SUSP 30 MG/5 ML VIAL IM SCH (20:43)
[2017-06-01] MEDS: LACTATED RINGER'S 1000 ML INJ 1,000 ML IV SCH (20:43)
[2017-06-01] MEDS: ESCITALOPRAM OXALATE 20 MG TAB PO SCH (21:00)
[2017-06-02] VITALS (30 sets, daily range): BP systolic 105–125; BP diastolic 46–70; PULSE 88–106; RESP 16–18; TEMP 97.4–100
[2017-06-02] MEDS: LACTATED RINGER'S 1000 ML INJ 1,000 ML IV SCH ×3 (05:23→19:30)
[2017-06-02 05:59] LABS: AUTOMATED NEUTROPHIL # 10.5 TH/MM3 (1.8-7.7); BASOPHIL % 0.1 % (0.0-2.0); HEMATOCRIT 29.7 % (35.0-46.0); HEMO FLAGS DIFF FINAL; LYMPH % 6.1 % (9.0-44.0); LYMPHOCYTE # 0.7 TH/MM3 (1.0-4.8); MEAN CELL VOLUME 90.2 FL (80.0-100.0); MEAN CORPUSCULAR HEMOGLOBIN 30.2 PG (27.0-34.0); MEAN CORPUSCULAR HGB CONC 33.5 % (32.0-36.0); MONO % 1.4 % (0.0-8.0); NEUT % 92.4 % (16.0-70.0); PLATELET COUNT 195 TH/MM3 (150-450); RED BLOOD COUNT 3.29 MIL/MM3 (4.00-5.30); RED CELL DISTRIBUTION WIDTH 15.1 % (11.6-17.2); WHITE BLOOD COUNT 11.4 TH/MM3 (4.0-11.0)
[2017-06-02] MEDS: FERROUS SULFATE 325 MG (65 MG ELEMENTAL IRON) TAB PO SCH ×2 (10:23→22:29)
[2017-06-02] MEDS: MULTIVIT/MIN/PREN/FOL AC/IRON PRENATAL TAB PO SCH (10:23)
[2017-06-02] MEDS: DOCUSATE SODIUM 100 MG CAP PO SCH (10:24)
[2017-06-02] MEDS: SODIUM CHLORIDE 0.9% FLUSH 10 ML FLUSH IV FLUSH SCH ×2 (10:24→21:00)
[2017-06-02 14:59] LABS: BACTERIA, URINE RARE /hpf; BLOOD, URINE TRACE (NEG); COMMENT (UR) CATH-CULTURE IND; CULTURE IF INDICATED CATH CULTURE IND; GLUCOSE,URINE NEG (NEG); KETONE, URINE 80 mg/dL (NEG); MUCUS URINE FEW /lpf (OCC); NITRITE,URINE NEG (NEG); PH, URINE 6.5 (5.0-8.5); SQUAMOUS EPITHELIAL CELL URINE <1 /hpf (0-5); URINE COLOR YELLOW (YELLW/STRAW)
--- NOTE | 2017-06-02 17:39 | PD.OB.ANTE ---
Subjective Diagnosis: (1) Previous section complicating , antepartum condition or complication (2) Placenta previa antepartum in third trimester (3) Depression affecting in third trimester, antepartum Interval History pt tolerating magnesium well. denies sob/cp. + FM, min vaginal staining. denies LOF. rare contractions Objective Vital Signs Vital Signs Date Time Temp Pulse Resp B/P Pulse Ox O2 Delivery O2 Flow Rate FiO2 06/02/17 16:00 97 115/59 06/02/17 15:00 106 16 110/56 06/02/17 14:00 99 121/58 06/02/17 14:00 16 06/02/17 13:00 102 120/63 06/02/17 13:00 16 06/02/17 12:00 103 125/64 06/02/17 12:00 16 06/02/17 11:00 98.6 16 06/02/17 11:00 101 115/62 06/02/17 10:00 102 115/64 06/02/17 09:00 98 111/51 06/02/17 08:59 16 06/02/17 08:02 96 118/61 06/02/17 07:58 16 06/02/17 07:00 16 06/02/17 07:00 100.0 06/02/17 07:00 103 105/58 06/02/17 06:00 99 109/52 06/02/17 05:29 18 06/02/17 05:09 97.4 06/02/17 05:00 96 124/68 06/02/17 05:00 18 06/02/17 04:00 18 124/70 06/02/17 04:00 92 06/02/17 04:00 96 114/60 06/02/17 03:00 18 06/02/17 02:00 18 06/02/17 02:00 97 107/55 06/02/17 01:00 88 118/62 06/02/17 00:46 18 06/02/17 00:45 98.3 06/02/17 00:00 94 18 117/61 06/01/17 23:00 98 18 117/59 06/01/17 22:00 92 128/63 06/01/17 21:52 18 06/01/17 21:00 94 122/61 06/01/17 21:00 18 06/01/17 20:31 92 120/63 06/01/17 20:25 119/55 06/01/17 20:20 90 121/60 06/01/17 20:15 89 120/65 06/01/17 19:55 93 132/66 06/01/17 19:40 96 130/62 06/01/17 19:33 18 06/01/17 19:32 98.1 06/01/17 19:30 91 126/61 Lab & Micro Results Test 06/02/17 06/02/17 06/02/17 04:37 08:46 14:10 White Blood Count 11.4 TH/MM3 Red Blood Count 3.29 MIL/MM3 Hemoglobin 10.0 GM/DL Hematocrit 29.7 % Mean Corpuscular Volume 90.2 FL Mean Corpuscular Hemoglobin 30.2 PG Mean Corpuscular Hemoglobin 33.5 % Concent Red Cell Distribution Width 15.1 % Platelet Count 195 TH/MM3 Mean Platelet Volume 8.0 FL Neutrophils (%) (Auto) 92.4 % Lymphocytes (%) (Auto) 6.1 % Monocytes (%) (Auto) 1.4 % Eosinophils (%) (Auto) 0.0 % Basophils (%) (Auto) 0.1 % Neutrophils # (Auto) 10.5 TH/MM3 Lymphocytes # (Auto) 0.7 TH/MM3 Monocytes # (Auto) 0.2 TH/MM3 Eosinophils # (Auto) 0.0 TH/MM3 Basophils # (Auto) 0.0 TH/MM3 CBC Comment DIFF FINAL Differential Comment Blood Type A POSITIVE Antibody Screen NEGATIVE Crossmatch Leukocyte-Reduced Red Blood Cells Blood Bank Comment Urine Color YELLOW Urine Turbidity CLEAR Urine pH 6.5 Urine Specific [place] 1.013 Urine Protein NEG mg/dL Urine Glucose (UA) NEG mg/dL Urine Ketones 80 mg/dL Urine Occult Blood TRACE Urine Nitrite NEG Urine Bilirubin NEG Urine Urobilinogen LESS THAN 2.0 MG/DL Urine Leukocyte Esterase NEG Urine RBC 4 /hpf Urine WBC 3 /hpf Urine Squamous Epithelial <1 /hpf Cells Urine Bacteria RARE /hpf Urine Mucus FEW /lpf Microscopic Urinalysis Comment CATH-CULTURE IND Date/Time Procedure Status Source Growth 06/02/17 14:10 Urine Culture Received Urine Catheterized Urine Pending Physical Exam GENERAL: Well-nourished, well-developed patient. CARDIOVASCULAR: Regular rate and rhythm without murmurs, gallops, or rubs. RESPIRATORY: Breath sounds equal bilaterally. No accessory muscle use. ABDOMEN/GI: Abdomen soft, non-tender. FHT's: Category: [-] 1 Baseline: [-] 130s Reactive: [-] yes Variability: [-] Decels: [-] EXTREMITIES: No cyanosis or edema, non-tender, without signs of DVT. Assessment and Plan Problem List: (1) Previous section complicating , antepartum condition or complication Status: Acute Assessment & Plan: pt aware of concern for accreta given hx of two prior c- sections, pt understands need for hysterectomy with vertical skin incision. all questions answered with pt. will plan for delivery at 34 wks, on 06/04/17. (2) Placenta previa antepartum in third trimester Status: Acute Assessment & Plan: cont SCDs, bedrest (3) Depression affecting in third trimester, antepartum Status: Acute Assessment & Plan: cont lexapro to 20 mg Assessment and Plan will d/c mag for neuroprotection at 6 am on 06/03 Marcela Nicole MD Jun 02, 2017 17:39
[2017-06-02] MEDS: BETAMETHASONE SOD PHOS/ACETATE SUSP 30 MG/5 ML VIAL IM SCH (19:30)
[2017-06-02] MEDS: ESCITALOPRAM OXALATE 20 MG TAB PO SCH (22:29)
[2017-06-03] VITALS (21 sets, daily range): BP systolic 101–127; BP diastolic 45–63; PULSE 87–99; RESP 17–18; TEMP 97.9–98.7
[2017-06-03] MEDS: FERROUS SULFATE 325 MG (65 MG ELEMENTAL IRON) TAB PO SCH ×2 (08:51→22:22)
[2017-06-03] MEDS: SODIUM CHLORIDE 0.9% FLUSH 10 ML FLUSH IV FLUSH SCH ×2 (08:51→21:00)
[2017-06-03] MEDS: MULTIVIT/MIN/PREN/FOL AC/IRON PRENATAL TAB PO SCH (08:51)
[2017-06-03] MEDS: DOCUSATE SODIUM 100 MG CAP PO SCH (08:51)
--- NOTE | 2017-06-03 11:54 | PD.OB.ANTE ---
Subjective Diagnosis: (1) Previous section complicating , antepartum condition or complication (2) Placenta previa antepartum in third trimester (3) Depression affecting in third trimester, antepartum Interval History pt doing well. min bleeding. feeling rare contraction. +FM, denies LOF Objective Vital Signs Vital Signs Date Time Temp Pulse Resp B/P Pulse Ox O2 Delivery O2 Flow Rate FiO2 06/03/17 08:49 98.7 94 115/59 06/03/17 07:00 91 101/45 06/03/17 06:00 87 18 112/63 06/03/17 06:00 97.9 06/03/17 05:00 92 105/62 06/03/17 04:00 91 109/61 06/03/17 03:00 91 104/60 06/03/17 02:00 89 109/59 06/03/17 01:00 96 107/53 06/03/17 00:00 98 102/49 06/02/17 23:00 90 113/58 06/02/17 22:00 100 123/58 06/02/17 21:00 102 110/48 06/02/17 20:00 98.1 101 115/46 06/02/17 19:00 98 121/61 06/02/17 18:00 98.1 99 116/59 06/02/17 18:00 18 06/02/17 17:00 103 123/61 06/02/17 16:00 97 115/59 06/02/17 15:00 106 16 110/56 06/02/17 14:00 99 121/58 06/02/17 14:00 16 06/02/17 13:00 102 120/63 06/02/17 13:00 16 06/02/17 12:00 103 125/64 06/02/17 12:00 16 Lab & Micro Results Test 06/02/17 14:10 Urine Color YELLOW Urine Turbidity CLEAR Urine pH 6.5 Urine Specific [place] 1.013 Urine Protein NEG mg/dL Urine Glucose (UA) NEG mg/dL Urine Ketones 80 mg/dL Urine Occult Blood TRACE Urine Nitrite NEG Urine Bilirubin NEG Urine Urobilinogen LESS THAN 2.0 MG/DL Urine Leukocyte Esterase NEG Urine RBC 4 /hpf Urine WBC 3 /hpf Urine Squamous Epithelial <1 /hpf Cells Urine Bacteria RARE /hpf Urine Mucus FEW /lpf Microscopic Urinalysis Comment CATH-CULTURE IND Date/Time Procedure Status Source Growth 06/02/17 14:10 Urine Culture Received Urine Catheterized Urine Pending Physical Exam GENERAL: Well-nourished, well-developed patient. CARDIOVASCULAR: Regular rate and rhythm without murmurs, gallops, or rubs. RESPIRATORY: Breath sounds equal bilaterally. No accessory muscle use. ABDOMEN/GI: Abdomen soft, non-tender. FHT's: Category: [-] 1 Baseline: [-] 140s Reactive: [-] yes Variability: [-] Decels: [-] EXTREMITIES: No cyanosis or edema, non-tender, without signs of DVT. Assessment and Plan Problem List: (1) Previous section complicating , antepartum condition or complication Status: Acute Assessment & Plan: reviewed consent with pt all questions answered. pt consented for hysterectomy with vertical skin incision, cystoscopy with stent placement. all questions answered with pt. (2) Placenta previa antepartum in third trimester Status: Acute Assessment & Plan: cont SCDs, bedrest plan c-hysterectomy for suspected accreta in am (3) Depression affecting in third trimester, antepartum Status: Acute Assessment & Plan: cont lexapro to 20 mg Marcela Nicole MD Jun 03, 2017 11:53
--- NOTE | 2017-06-03 18:45 | HHI.PR ---
Subjective Patient symptoms today Patient doing well. Wright catheter in place, clear yellow urine. Objective Vital Signs Vital Signs Date Time Temp Pulse Resp B/P Pulse Ox O2 Delivery O2 Flow Rate FiO2 06/03/17 18:00 17 06/03/17 17:00 18 06/03/17 16:00 18 06/03/17 15:00 18 06/03/17 14:00 98.1 06/03/17 14:00 99 18 115/59 06/03/17 13:00 18 06/03/17 12:00 17 06/03/17 11:00 17 06/03/17 10:00 17 06/03/17 09:00 18 06/03/17 08:49 98.7 94 115/59 06/03/17 07:00 91 101/45 06/03/17 06:00 87 18 112/63 06/03/17 06:00 97.9 06/03/17 05:00 92 105/62 06/03/17 04:00 91 109/61 06/03/17 03:00 91 104/60 06/03/17 02:00 89 109/59 06/03/17 01:00 96 107/53 06/03/17 00:00 98 102/49 06/02/17 23:00 90 113/58 06/02/17 22:00 100 123/58 06/02/17 21:00 102 110/48 06/02/17 20:00 98.1 101 115/46 06/02/17 19:00 98 121/61 Result Diagram: 06/02/17 0437 Medications and IVs Current Medications Medications (Trade) Dose Ordered Sig/Waldo Route Start Time Stop Time Status Last Admin (Tylenol) 650 mg Q4H PRN PO 05/11/17 20:15 (Stuartnatal Plus 3 ) 1 tab DAILY PO 05/12/17 09:00 06/03/17 08:51 (Colace) 100 mg DAILY PO 05/12/17 09:00 06/03/17 08:51 (Mag-Al Plus Susp Liq) 30 ml QID PRN PO 05/11/17 20:15 (NS Flush) 2 ml BID IV FLUSH 05/11/17 21:00 06/03/17 08:51 (NS Flush) 2 ml UNSCH PRN IV FLUSH 05/11/17 20:15 (Ambien) 5 mg HS PRN PO 05/11/17 20:15 (Zofran Inj) 4 mg Q6H PRN IV 05/11/17 20:15 (Ferrous Sulfate) 325 mg BID PO 05/11/17 21:00 06/03/17 08:51 Escitalopram Oxalate 20 mg 20 mg HS PO 05/28/17 21:00 06/02/17 22:29 (Lr 1000 ml Inj) 1,000 ml @ 125 mls/hr Q8H IV 06/01/17 19:30 06/02/17 19:30 (Calcium Gluconate Inj) 1 gm ONCE PRN IV 06/01/17 19:30 06/15/17 19:29 Assessment and Plan Assessment and Plan -Discussed in detail cystoscopy and stent placement. We discussed the possibility of prolonged stents requiring removal at a later date via cystoscopy. -Discussed the risks of the procedure, which include possible bladder injury, ureteral injury, major reconstruction of the urinary system, prolonged stents, prolonged catheter, hematuria, infection, pain. -Patient understands and agrees with above plan. All questions were answered in detail -Consent signed -Will perform Cystoscopy with bilateral ureteral stent placement tomorrow morning and will be available for the duration of the and hysterectomy Steve Kaufman MD Jun 03, 2017 18:45
[2017-06-03] MEDS: ESCITALOPRAM OXALATE 20 MG TAB PO SCH (22:22)
[2017-06-04 00:43] VITALS: BP 124/70; PULSE 88; RESP 16; TEMP 98.1
[2017-06-04] MEDS: LACTATED RINGER'S 1000 ML INJ 1,000 ML IV SCH ×2 (01:59→11:30)
[2017-06-04 04:03] VITALS: BP 114/57; PULSE 88; TEMP 98.6
[2017-06-04 04:04] VITALS: RESP 16
[2017-06-04] MEDS ORDERED: LACTATED RINGER'S 1000 ML IV ONE (06:15)
[2017-06-04] MEDS ORDERED: LACTATED RINGER'S 1000 ML IV SCH (06:15)
[2017-06-04] MEDS ORDERED: CITRIC ACID-SODIUM CITRATE LIQ 30 ML UDC PO SCH (06:15)
[2017-06-04] MEDS ORDERED: ceFAZolin 2 GM PREMIX 50 ML IV SCH (06:15)
[2017-06-04] MEDS ORDERED: MISOPROSTOL 200 MCG TAB ONE (06:46)
[2017-06-04] MEDS ORDERED: METHYLERGONOVINE MALEATE 0.2 MG/ML VIAL ONE (06:46)
[2017-06-04] MEDS ORDERED: CARBOPROST TROMETHAMINE 250 MCG/ML VIAL ONE (06:46)
[2017-06-04 07:37] LABS: AUTOMATED NEUTROPHIL # 8.9 TH/MM3 (1.8-7.7); BASOPHIL % 0.1 % (0.0-2.0); EOSINOPHIL % 0.2 % (0.0-4.0); HEMO FLAGS DIFF FINAL; LYMPH % 14.6 % (9.0-44.0); LYMPHOCYTE # 1.7 TH/MM3 (1.0-4.8); MEAN CELL VOLUME 92.2 FL (80.0-100.0); MEAN CORPUSCULAR HEMOGLOBIN 29.8 PG (27.0-34.0); MEAN CORPUSCULAR HGB CONC 32.3 % (32.0-36.0); MONO % 7.2 % (0.0-8.0); NEUT % 77.9 % (16.0-70.0); PLATELET COUNT 180 TH/MM3 (150-450); RED BLOOD COUNT 3.15 MIL/MM3 (4.00-5.30); RED CELL DISTRIBUTION WIDTH 15.1 % (11.6-17.2); WHITE BLOOD COUNT 11.4 TH/MM3 (4.0-11.0)
[2017-06-04] MEDS ORDERED: SODIUM BICARBONATE 8.4% INJ 50 MEQ/50 ML SYR IV ONE ×3 (09:00→09:53)
[2017-06-04] MEDS ORDERED: OXYTOCIN IV ONE (09:00)
[2017-06-04] MEDS: MULTIVIT/MIN/PREN/FOL AC/IRON PRENATAL TAB PO SCH (09:00)
[2017-06-04] MEDS: DOCUSATE SODIUM 100 MG CAP PO SCH (09:00)
[2017-06-04] MEDS ORDERED: PROPOFOL 200 MG/20 ML AMP IV ONE (09:00)
[2017-06-04] MEDS ORDERED: SODIUM CHLORID 0.9% 500 ML INJ 1,000 ML IV ONE (09:00)
[2017-06-04] MEDS ORDERED: PHENYLEPH/NS 1000 MCG/10 ML SYR IV ONE (09:00)
[2017-06-04] MEDS ORDERED: ePHEDrine/NS 25 MG/5 ML SYR IV ONE (09:00)
[2017-06-04] MEDS ORDERED: LACTATED RINGER'S 1000 ML INJ 4,000 ML IV ONE (09:00)
[2017-06-04] MEDS ORDERED: SODIUM CHLORIDE IV ONE (09:00)
[2017-06-04] MEDS ORDERED: PHENYLEPHRINE HCL 10 MG/ML VIAL IV ONE (09:00)
[2017-06-04] MEDS: FERROUS SULFATE 325 MG (65 MG ELEMENTAL IRON) TAB PO SCH (09:00)
[2017-06-04] MEDS ORDERED: NORMOSOL R IV ONE (09:00)
[2017-06-04] MEDS: SODIUM CHLORIDE 0.9% FLUSH 10 ML FLUSH IV FLUSH SCH (09:00)
[2017-06-04 09:04] LABS: BLOOD GAS BASE EXCESS 0.2 mmol/L (-2-2); BLOOD GAS O2 HGB SATURATION 54 % (90-100); CORD BLOOD GAS HCO3 26 mmol/L (21-29); CORD BLOOD GAS PCO2 54 mmHG (34-78); CORD BLOOD GAS PO2 27 mmHG (3.0-40.0)
[2017-06-04 09:05] LABS: DRAW SITE CORD BLOOD; STAT NO
[2017-06-04 09:07] LABS: BLOOD GAS BASE EXCESS -8.3 mmol/L (-2-2); BLOOD GAS CARBOXYHEMOGLOBIN 1.2 % (0-4); BLOOD GAS HCO3 18 mmol/L (22-26); BLOOD GAS O2 HGB SATURATION 98 % (90-100); BLOOD GAS OXYGEN CONTENT 15.1 Vol % (12.0-20.0); BLOOD GAS PCO2 47 mmHg (38-42); BLOOD GAS PO2 281 mmHg (61-120); BLOOD GAS TOTAL HGB 10.5 G/DL (12.0-16.0); CRITICAL VALUE YES; OXYGEN DEVICE OR; STAT YES; TEMP CORR TO 98.6
[2017-06-04 09:19] LABS: BLOOD GAS BASE EXCESS -2.9 mmol/L (-2-2); BLOOD GAS CARBOXYHEMOGLOBIN 1.6 % (0-4); BLOOD GAS HCO3 23 mmol/L (22-26); BLOOD GAS O2 HGB SATURATION 98 % (90-100); BLOOD GAS OXYGEN CONTENT 9.3 Vol % (12.0-20.0); BLOOD GAS PCO2 48 mmHg (38-42); BLOOD GAS PO2 258 mmHg (61-120); BLOOD GAS TOTAL HGB 6.3 G/DL (12.0-16.0); TEMP CORR TO 98.6
[2017-06-04 09:20] LABS: CRITICAL VALUE YES; FIO2 100 %; OXYGEN DEVICE OR; STAT YES
[2017-06-04 09:44] LABS: BLOOD GAS BASE EXCESS -15.7 mmol/L (-2-2); BLOOD GAS CARBOXYHEMOGLOBIN 2.2 % (0-4); BLOOD GAS HCO3 12 mmol/L (22-26); BLOOD GAS METHEMOGLOBIN 1.1 % (0-2); BLOOD GAS O2 HGB SATURATION 96 % (90-100); BLOOD GAS OXYGEN CONTENT 7.3 Vol % (12.0-20.0); BLOOD GAS PCO2 45 mmHg (38-42); BLOOD GAS PO2 209 mmHg (61-120); CRITICAL VALUE YES; OXYGEN DEVICE OR; STAT YES; TEMP CORR TO 98.6
[2017-06-04] MEDS ORDERED: EPINEPHrine HCL (1:10,000) 1 MG/10 ML SYRINGE IV ONE ×2 (09:53)
[2017-06-04] MEDS ORDERED: CALCIUM CHLORIDE 10% SOLN 1 GRAM/10 ML SYR IV ONE ×2 (09:53)
[2017-06-04] MEDS ORDERED: EPINEPHrine HCL (1:1000) 30 MG/30 ML VIAL IV ONE (09:53)
--- NOTE | 2017-06-04 10:04 | RADRPT ---
EXAM DATE/TIME: 06/04/2017 09:27 [facility] COMPARISON: No previous studies available for comparison. INDICATIONS : Patient coding. Getting chest compressions. MEDICAL HISTORY : None. SURGICAL HISTORY : None. ENCOUNTER: Initial ACUITY: 1 day PAIN SCORE: Non-responsive. LOCATION: Chest FINDINGS: An endotracheal tube has its tip 3 cm above the janneth. A right internal jugular vascular sheath is noted. The heart is enlarged. Perihilar infiltrates are noted consistent with severe pulmonary kaley a versus pneumonia. Clinical correlation is recommended. CONCLUSION: 1. Perihilar infiltrates consistent with severe pulmonary edema versus pneumonia. Clinical correlati on is recommended. 2. Cardiomegaly. 3. Endotracheal tube in good position 3 cm above the janneth. James Lam MD on June 04, 2017 at 9:51 Board Certified Radiologist. This report was verified electronically.
--- NOTE | 2017-06-04 13:23 | MP ---
cc: SUDARSHAN CULLEN MD DATE OF OPERATION June 04, 2017 PREOPERATIVE DIAGNOSIS Placenta previa/accreta. POSTOPERATIVE DIAGNOSIS Placenta previa/accreta. SURGEON Sudarshan Cullen MD PROCEDURE PERFORMED 1. Cystoscopy. 2. Bilateral ureteral stent placement. PERTINENT FINDINGS 1. Normal-appearing bladder with no evidence of invasion or significant blood vessels noted in the bladder. 2. Successful placement of bilateral ureteral stents with 5-Serbian open-ended ureteral catheters. 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 Concern is for possible bladder involvement, therefore cystoscopy and bilateral ureteral stent placement to be performed prior to /hysterectomy. PROCEDURE IN DETAIL After proper fully informed consent was obtained, the patient was brought to the operating room and laid supine on the operating room table. The bilateral lower extremities had SCDs placed. The patient was then placed under spinal anesthesia and placed in the lithotomy position. The patient was prepped and draped in standard surgical fashion. After proper time-out was completed, the rigid cystoscope was inserted with decrease in the bladder. The urethral mucosa was within normal limits. There was no lesion identified upon entering the bladder. Bilaterally ureteral orifices were identified. The bladder was inspected throughout for any abnormalities. There were no lesions noted throughout. There was no evidence of any kind of invasion into the bladder. Therefore 5-Serbian open-ended ureteral catheter was then placed into each ureteral orifice, right and left, without difficulty and advanced all the to the right renal and left renal pelvis. The cystoscope was then removed and a 20-Serbian Wright catheter was placed. The ureteral stents was secured to the catheter. The patient's urine was clear, no evidence of blood within the urinary system. At this point the Wright catheter was hooked up to a drainage bag. This completed the urology portion of the procedure. Please see [employer] note for the and hysterectomy portion of the procedure. DISPOSITION Ureteral catheters may be removed at the end of the overall procedure. Sudarshan Cullen M.D. SML/SSB /10:05 AM /1:04 PM [id number]
--- NOTE | 2017-06-05 10:55 | MP ---
cc: MARCELA NICOLE DATE OF SURGERY: 06/04/2017 PREOPERATIVE DIAGNOSIS 1. Intrauterine at 34 weeks gestation. 2. 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 3. History of prior x2. POSTOPERATIVE DIAGNOSIS 1. Intrauterine at 34 weeks gestation. 2. 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 3. History of prior x2. 4. Delivery of viable male . 5. Maternal cardiac arrest possibly secondary to amniotic fluid embolus, vs pulmonary embolus versus possible myocardial infarction with resulting mitral valve injury vs unknown etiology. PROCEDURE 1. hysterectomy. 2. Cystoscopy with bilateral stent placement by Dr. Kaufman. SURGEON Marcela Nicole MD [employer] Anaya Pierson MD and Sage Segura MD ANESTHESIA Spinal and general. ESTIMATED BLOOD LOSS Four liters. DRAINS Wright catheter in the bladder. Wright bulb placed in her lower uterine segment/cervix. ELY drain placed in the abdomen. DESCRIPTION OF PROCEDURE After informed consent was obtained the patient was taken to the operating room and placed in the dorsal lithotomy position. She was prepped and draped in normal sterile fashion for surgery. Cystoscopy was performed with stent placement by Dr. Kaufman. During this time the fetus was monitored and no decelerations were noted. Please see Dr. Kaufman's notes for further description. Once he was done with this portion the patient's abdomen was re-prepped and a new drape applied. A midline vertical incision was made and carried down to the underlying layer of fascia. The fascia was divided in the midline. The peritoneum was identified and tented up and entered sharply using Metzenbaum scissors. The incision was extended laterally and also superiorly and inferiorly. On inspection of the abdomen there did not appear to be any gross evidence of percreta rather likely increta was suspected versus accreta. This seemed to be taking up the lower uterine segment thus a vertical incision was made on the uterus. In making the incision and going through the layers a small portion of placenta was also encountered. The incision was extended and the infant vertex was delivered atraumatically through the incision followed by the remainder of the 's body. The cord was doubly clamped and cut and the infant was passed off to the awaiting neonatology team in attendance for delivery. Once the had been delivered and passed off to the neonatology team, the patient was bleeding profusely from her lower uterine segment. A hysterectomy was immediately started on the patient's right side, clamping the round ligament, cutting and suture ligating. Next, the uteroovarian ligament and the fallopian tube pedicle was grasped, clamped and suture ligated. Also on the patient's right side the uterine artery was clamped, cut and suture ligated. This did decrease her bleeding significantly. Approximately 2-3 liters of blood and amniotic fluid was in the cannister at this point. And transfusion of PRBCs and FFP had been started per anesthesia. On the patient's left side the round ligament was clamped, cut and suture ligated. The uteroovarian ligament and fallopian tube were also clamped, cut and suture ligated. Successive bites were taken, clamping, cutting and suture ligating until the level of the uterine artery was reached on the patient's left side as well. The uterine fundus was amputated after clamping the lower uterine segment area with clamps. The uterus was amputated and passed off to pathology for evaluation. At this point there was still noted to be a small amount of placenta covering the cervix. We found the plane and removed the majority of this placenta. Once this was done there was still noted to be a small amount of oozing coming from the stump. The decision was made to place a Wright as a drain within the cervical stump/lower uterine segment and this was oversewn using 0 Vicryl suture in a running locked fashion over the cervical bed to minimize further bleeding coming from this area and decision was also made to take the patient to radiology to further embolize this area so as to decrease any further bleeding. Once the cervical stump had been oversewn a jab incision was made on the patient's right lower abdomen and a ELY drain was placed in the posterior cul-de-sac to also monitor or observe and bleeding that could be occurring intraperitoneally. It should also be noted that the Wright bulb that was placed within the cervical bed that drain was going out through the patient's left side upper abdomen with another jab incision there. The fascia was re-approximated using 0 PDS suture with two lengths of suture that met in the middle. Just as the last stitch was thrown in the fascia and as jerry were about to be placed Anesthesia notified us that there had been a change in the patient's EKG complex and compressions were started chest compressions were started at this time. The patient's ELY drain started filling with blood and was emptied. In an effort to see if there was bleeding intraabdominally, the patients abdomen was reopened and examined. No hematoma or hemoperitoneum was noted. Our oversewn cervical stump was not enlarging. This area was then manually compressed during the remainder of the resuscitation. Please see the anesthesia notes for further description of the events. Full cardiac resuscitation was performed and ultimately a transesophageal echocardiogram was also performed intraoperatively and the CT surgeon was called in. It did appear that there had been some major cardiac event that occurred and the patient's mitral valve was not functioning properly, and after approximately 31 minutes of being coded the patient was pronounced at 9:54 a.m. Marcela Nicole MD TEG/BT /5:40 PM /10:23 AM [email or web address]
--- NOTE | 2017-07-10 12:09 | MD ---
cc: RAYO RALPH ADMISSION DATE: 05/19/2017 DISCHARGE DATE: 06/04/2017 ADMITTING DIAGNOSIS: Intrauterine at 30 weeks gestation placenta previa suspected placenta acreda. PRINCIPAL PROCEDURE 1. Obstetrical ultrasounds. 2. A section. 3. hysterectomy on 06/04/2017. BRIEF SUMMARY OF HOSPITAL COURSE: The patient was admitted on 05/11 because of the third large bleeding episode. The patient was kept on bedrest and steroids were repeated. She had ultrasounds done with maternal medicine. She also had physical therapy during the hospital stay because of the acuity of her case and the possibility of bladder involvement. Urology was consulted, in addition to physical therapy and maternal medicine. The decision was made to deliver the patient at 34 weeks gestation by a hysterectomy and the patient had this on 06/04/2017, the surgery was performed, as the surgery was primarily over the patient went into cardiac arrest and then was unable to be resuscitated and was pronounced at that point on 06/04/2017. MD GEMMA Garcia/ /6:05 PM /12:03 PM
== END 2017-06-04 09:54 | disposition expired | DRG 765 ==
LOC: HOBED 19:02 → H2EB 20:19 → OBSVTOIN 05-19 18:27
PROVIDERS: ADMIT Obstetrics & Gynecology; ATTEND Obstetrics & Gynecology
PROC: B246ZZ4 Ultrasonography of Right and Left Heart, Transesophageal (ICD-10-PCS; 2017-05-19)
PROC: 30233N1 Transfusion of Nonautologous Red Blood Cells into Peripheral Vein, Percutaneous Approach (ICD-10-PCS; 2017-06-02)
PROC: 0W3R0ZZ Control Bleeding in Genitourinary Tract, Open Approach (ICD-10-PCS; 2017-06-04)
PROC: 30233K1 Transfusion of Nonautologous Frozen Plasma into Peripheral Vein, Percutaneous Approach (ICD-10-PCS; 2017-06-04)
PROC: 6A551Z2 Pheresis of Platelets, Multiple (ICD-10-PCS; 2017-06-04)
PROC: 0T788DZ Dilation of Bilateral Ureters with Intraluminal Device, Via Natural or Artificial Opening Endoscopic (ICD-10-PCS; 2017-06-04)
PROC: 0T9B70Z Drainage of Bladder with Drainage Device, Via Natural or Artificial Opening (ICD-10-PCS; 2017-06-04)
PROC: 5A12012 Performance of Cardiac Output, Single, Manual (ICD-10-PCS; 2017-06-04)
PROC: 10D00Z1 Extraction of Products of Conception, Low, Open Approach (ICD-10-PCS; principal; 2017-06-04 07:24)
PROC: 0UT90ZZ Resection of Uterus, Open Approach (ICD-10-PCS; 2017-06-04 07:24)
PROC: 0UTC0ZZ Resection of Cervix, Open Approach (ICD-10-PCS; 2017-06-04 07:24)
DX: O43.2 Morbidly adherent placenta (principal); O44.13 Complete placenta previa with hemorrhage, third trimester; I21.3 ST elevation (STEMI) myocardial infarction of unspecified site; O88.113 Amniotic fluid embolism in pregnancy, third trimester; O99.42 Diseases of the circulatory system complicating childbirth; I97.791 Other intraoperative cardiac functional disturbances during other surgery; O43.213 Placenta accreta, third trimester; Z37.0 Single live birth; O99.344 Other mental disorders complicating childbirth; F32.9 Major depressive disorder, single episode, unspecified; Z3A.34 34 weeks gestation of pregnancy; O34.219 Maternal care for unspecified type scar from previous cesarean delivery; I34.1 Nonrheumatic mitral (valve) prolapse
CPT/HCPCS: 36430; 59025; 71010; 76816; 76937; 80048; 81001; 82805; 85007; 85025; 85027; 85610; 86403; 86850; 86900; 86901; 86920; 86927; 86965; 87086; 87147; 87186; 88307; 92950; 93318; C1769; C1894; G0378; G8987-GP; G8988-GP; J0171; J0702; J2210; J2370; J2590; J3010; J3475; J7040; J7120; P9016; P9017; P9035